=== PATIENT | female | born 1980 | race Caucasian/White ===

== ENCOUNTER 2020-10-04 07:37 | Outpatient (CLI) | payer BC, SELFPAY ==
--- NOTE | ~2020-10-04 | US_ITS ---
EXAMINATION: US abdomen limited DATE: 10/04/2020 08:09 INDICATION: Right upper quadrant abdominal pain. Nausea. TECHNIQUE: Multiple grayscale and Doppler ultrasound images of the abdomen were obtained. COMPARISON: None FINDINGS: The visualized portions of the head and body of the pancreas are normal. The liver is cliff l without focal lesion. There is normal flow in main portal vein. The gallbladder is normal in size. No gallstones or gallbladder wall thickening. There was no sonographic Selby sign. The common duct i s mildly dilated to 7 mm. IMPRESSION: 1. Mildly dilated common duct. Reviewed, dictated and finalized at location A. H OPERATOR
== END 2020-10-04 07:38 ==
PROVIDERS: PCP Family Medicine; Visit Provider Family Medicine
DX: R10.11 Right upper quadrant pain (principal)
CPT/HCPCS: 76705

== ENCOUNTER → 2021-01-17 01:37 | Outpatient (CLI) | payer BC, SELFPAY ==
[2021-01-17 19:56] LABS: SARS-CoV-2 RNA PCR Negative
== END ==
PROVIDERS: PCP Family Medicine; Visit Provider Internal Medicine Gastroenterology
DX: Z01.812 Encounter for preprocedural laboratory examination (principal); Z20.822 Contact with and (suspected) exposure to COVID-19
CPT/HCPCS: C9803; U0003; U0005

== ENCOUNTER 2021-01-20 02:25 | Day surgery (SDC) | payer BC, SELFPAY ==
[2021-01-08 13:57] VITALS: BMI 27.6
[2021-01-20 09:08] VITALS: BP 125/81; PULSE 83; RESP 18; TEMP 36.2; O2SAT 100; BMI 27.1
[2021-01-20] MEDS: LACTATED RINGERS 1,000 ML 150 ML IV CONT (09:22)
[2021-01-20 09:25] LABS: Glucose Point of Care 247 mg/dl (65-105)
--- NOTE | 2021-01-20 09:37 | WPDANESEPPF ---
Anes - Initial Pre Proc Eval Procedure: Operation Date: 01/20/21 10:00 Proposed Procedures p Esophagogastroduodenoscopy & Colonoscopy - Satnam Martinez MD Date/Time: 01/20/21 09:37 Surgeon: Satnam Martinez MD Pre Op Diagnosis: diarrhea, nausea, vomiting Patient Data Age: 40 Gender: F Height: 5 ft 7 in Weight: 78.8 kg Last Vital Signs Temp 97.1 F L 01/20/21 09:08 Pulse 83 01/20/21 09:08 Resp 18 01/20/21 09:08 BP 125/81 01/20/21 09:08 Pulse Ox 100 01/20/21 09:08 Allergies Allergy/AdvReac Type Severity Reaction Status Date / Time lactase [From Dairy Aid] Allergy Nausea and Verified 01/20/21 09:07 Vomiting Home Medications Medication Instructions Recorded Confirmed Type insulin glargine 100 unit/mL (3 40 unit SUB-Q QPM 90 Days #36 ml 05/19/20 01/08/21 Rx mL) subcutaneous pen insulin lispro 100 unit/mL 6 unit SUB-Q TID 90 Days #16.2 ml 05/19/20 01/08/21 Rx subcutaneous pen pen needle, diabetic 31 gauge x #400 ea 07/16/20 10/20/20 Rx 3/16 lisinopril 10 mg tablet 10 mg PO DAILY #90 tablet 10/31/20 01/08/21 Rx flash glucose sensor #6 ea 11/05/20 Rx famotidine [Pepcid] 20 mg PO DAILY 01/08/21 01/08/21 History Laboratory Tests 01/20/21 09:17 POC Capillary Glucose 247 mg/dl H mg/dl (65-105) Patient hx anesthesia problems: none Family hx anesthesia problems: none PMFSH Past Medical History Medical History (Updated 10/20/20 @ 11:40 by EDUIN Fajardo) Arthritis Benign essential HTN Elevated liver enzymes Obesity (BMI 30.0-34.9) Tobacco dependence Family History Family History Father Family history of elevated blood lipids Hypertension Patient's father is in good health Mother Family history of diabetes mellitus in first degree relative Patient's mother is in good health Family history of thyroid disease Family history of type 1 diabetes mellitus Sibling Patient's sister is in good health Grandparent Family history of type 2 diabetes mellitus Other Family history of allergic disorder Family history of malignant neoplasm Social History Social History Social History: Years smoked: 15 Smoking status: Current every day smoker Tobacco type: cigarettes Second hand tobacco smoke exposure: Yes Alcohol intake: current Drinks per week: 40 Substance use: current Substance use type: marijuana Other substance usage details: edibles 10mg per day Living arrangements: with family Gender identity (if verbalized by the patient): Female Spiritual care concerns: No Anes - Eval Final PreProcedure Day of Procedure 01/20/21 09:37 Patient weight: obese Heart: regular rate and rhythm Lungs: clear to auscultation Airway: Mallampati scale class II Neurological: alert and oriented Last oral intake: >/= 8 hours ASA classification: III Emergent: no Anesthetic plan: proceed Anesthesia type and monitoring: general GIVS and standard monitoring Informed Consent: The patient's anesthetic plan and its attendant risks and benefits were discussed with the patient/family/POA. Questions were solicited and answers provided to the satisfaction of the patient/family/POA.
--- NOTE | 2021-01-20 09:55 | PM.HPGS ---
History of Present Illness History of Present Illness Consent: Risks, benefits, and alternatives have been discussed and questions answered. Patient agrees to proceed with procedure. Chief complaint: diarrhea, nausea, vomiting Narrative: Neva Chandler is a 40 year old female with history of DM and etoh use, with intermittent nausea and loose stools. Review of Systems Constitutional: Constitutional: Denies headache(s) and Denies weakness Eyes: Eyes: Denies blurry vision ENT: Reports Normal hearing present, Denies headache(s) and Denies neck pain Cardiovascular: Cardiovascular: Denies chest pain and Denies dyspnea Respiratory: Respiratory: Denies dyspnea Gastrointestinal: Gastrointestinal: Reports no additional gastrointestinal complaints Genitourinary: Genitourinary: Denies dysuria Musculoskeletal: Musculoskeletal: Denies neck pain Integumentary/Breasts: Skin/Breast: Denies dry skin Neurologic: Reports Normal hearing present, Denies headache(s) and Denies weakness Psychiatric: Psychiatric: Denies anxiety Endocrine: Endocrine: Denies change in body appearance Hematologic/Lymphatic: Hematologic/Lymphatic: Denies easy bleeding Allergic/Immunologic: Allergic/Immunologic: Denies urticaria [facility] Past Medical History Medical History (Updated 10/20/20 @ 11:40 by EDUIN Fajardo) Arthritis Benign essential HTN Elevated liver enzymes Obesity (BMI 30.0-34.9) Tobacco dependence Family History Family History Father Family history of elevated blood lipids Hypertension Patient's father is in good health Mother Family history of diabetes mellitus in first degree relative Patient's mother is in good health Family history of thyroid disease Family history of type 1 diabetes mellitus Sibling Patient's sister is in good health Grandparent Family history of type 2 diabetes mellitus Other Family history of allergic disorder Family history of malignant neoplasm Social History Social History Social History: Years smoked: 15 Smoking status: Current every day smoker Tobacco type: cigarettes Second hand tobacco smoke exposure: Yes Alcohol intake: current Drinks per week: 40 Substance use: current Substance use type: marijuana Other substance usage details: edibles 10mg per day Living arrangements: with family Gender identity (if verbalized by the patient): Female Spiritual care concerns: No Meds Home Medications and Allergies Home Medications Medication Instructions Recorded Confirmed Type insulin glargine 100 unit/mL (3 40 unit SUB-Q QPM 90 Days #36 ml 05/19/20 01/08/21 Rx mL) subcutaneous pen insulin lispro 100 unit/mL 6 unit SUB-Q TID 90 Days #16.2 ml 05/19/20 01/08/21 Rx subcutaneous pen pen needle, diabetic 31 gauge x #400 ea 07/16/20 10/20/20 Rx 11/11 lisinopril 10 mg tablet 10 mg PO DAILY #90 tablet 10/31/20 01/08/21 Rx flash glucose sensor #6 ea 11/05/20 Rx famotidine [Pepcid] 20 mg PO DAILY 01/08/21 01/08/21 History Allergies Allergy/AdvReac Type Severity Reaction Status Date / Time lactase [From Dairy Aid] Allergy Nausea and Verified 01/20/21 09:07 Vomiting Vital Signs Vital Signs - 24 hr 01/20/21 09:08 Temperature 97.1 F L Pulse Rate 83 Respiratory Rate 18 Blood Pressure 125/81 Pulse Oximetry 100 Exam Const: General: comfortable and no acute distress HENMT: General nose exam: Normal nares present Eyes: General: appearance normal, both eyes and all related structures Neck: Neck: no JVD Resp: Auscultation: clear to auscultation bilaterally Cardio: Rate: regular rate Rhythm: regular rhythm GI: Inspection: non-distended GI Palp: Yes Soft to palpation Skin: General skin exam: normal color Neuro: General: gait normal Speech: normal speech Extrem: General: normal to
[2021-01-20 10:24] VITALS: BP 110/83; PULSE 82; RESP 19; O2SAT 100
[2021-01-20 10:34] VITALS: BP 117/83; PULSE 81; RESP 25; O2SAT 100
[2021-01-20 10:44] VITALS: BP 115/80; PULSE 76; RESP 17; O2SAT 100
[2021-01-20 11:00] LABS: Glucose Point of Care 214 mg/dl (65-105)
--- NOTE | 2021-01-20 11:01 | SUR.PHASEII ---
Pt had stated she took insulin this morning, blood sugar checked before her leaving, she was at 214 and stated she had her medication with her.
== END 2021-01-20 10:59 | disposition home or self-care (01) ==
PROVIDERS: PCP Family Medicine; Visit Provider Internal Medicine Gastroenterology
PROC: 0DJ08ZZ Inspection of Upper Intestinal Tract, Via Natural or Artificial Opening Endoscopic (ICD-10-PCS; CPT 43235; principal; 2021-01-20 10:00)
DX: R19.7 Diarrhea, unspecified (principal); R11.2 Nausea with vomiting, unspecified; R14.0 Abdominal distension (gaseous); K44.9 Diaphragmatic hernia without obstruction or gangrene; I10 Essential (primary) hypertension; E66.9 Obesity, unspecified; E11.9 Type 2 diabetes mellitus without complications; R74.8 Abnormal levels of other serum enzymes; F17.200 Nicotine dependence, unspecified, uncomplicated
CPT/HCPCS: 45380; 43239; 82948; 88305; J2001; J2704; J7120

== ENCOUNTER → 2021-03-06 15:07 | Outpatient (CLI) | payer BC, SELFPAY ==
--- NOTE | ~2021-03-06 | XR_ITS ---
EXAMINATION: XR abdomen obstructive series EXAM DATE: 03/06/2021 15:50 INDICATION: R14.0 - Abdominal distension (gaseous). Low abdominal pain, nausea and vomiting intermitt ently. TECHNIQUE: Frontal upright projection of the upper abdomen, frontal projection of the lower abdomen f or interpretation. There is no prior study for comparison. FINDINGS: Small amount of colonic stool and gas. No small bowel dilation, nonobstructive bowel gas pattern. Calcifications in the pelvis are believed to be phleboliths. There are no suspicious calci fications identified. There is no organomegaly suspected. The bones are unremarkable. There is no free intraperitoneal air. The lung bases are clear. IMPRESSION: Unremarkable abdomen x-ray exam. Reviewed, dictated and finalized at location B.
== END ==
PROVIDERS: PCP Family Medicine; Visit Provider Family Medicine
DX: R14.0 Abdominal distension (gaseous) (principal)
CPT/HCPCS: 74019

== ENCOUNTER 2021-06-05 10:02 | Outpatient (CLI) | payer BC, SELFPAY ==
--- NOTE | ~2021-06-05 | XR_ITS ---
XR knee RT 3V DATE: 06/05/2021 10:31 INDICATION: Right knee pain TECHNIQUE: [place], AP and lateral views COMPARISON: 11/28/2018 right knee FINDINGS: There is slight periarticular spurring of the patella. Joint spaces appear well preserved. No fracture or dislocation or joint effusion. No periosteal reaction or bone destruction. No radiopaq ue intra-articular loose body or chondrocalcinosis. IMPRESSION: Slight particular spurring of the patella consistent with minimal patellofemoral osteoart hritis Reviewed, dictated and finalized at location A. IMPRESSION: Slight particular spurring of the patella consistent with minimal p atellofemoral osteoarthritis
--- NOTE | ~2021-06-05 | XR_ITS ---
XR wrist RT min 3V DATE: 06/05/2021 10:32 INDICATION: Right wrist pain TECHNIQUE: 4 views COMPARISON: None FINDINGS: No fracture or dislocation, periosteal reaction or bone destruction, erosive change or shira drocalcinosis of the right wrist. IMPRESSION: Negative Reviewed, dictated and finalized at location A. IMPRESSION: Negative
== END 2021-06-05 10:03 ==
PROVIDERS: PCP Family Medicine; Visit Provider Family Medicine
DX: R52 Pain, unspecified (principal); M76.891 Other specified enthesopathies of right lower limb, excluding foot
CPT/HCPCS: 73110; 73562

== ENCOUNTER 2022-01-04 09:15 | Outpatient (RCR) | payer BC, SELFPAY ==
[2021-12-29 08:04] VITALS: BMI 28.1
[2021-12-29 08:10] VITALS: BMI 28.1
== END 2022-03-15 10:36 | disposition home or self-care (01) ==
LOC: ANHDMC 09:15
PROVIDERS: PCP Family Medicine; Visit Provider Nurse Practitioner Family
DX: E10.319 Type 1 diabetes mellitus with unspecified diabetic retinopathy without macular edema (principal); Z71.3 Dietary counseling and surveillance; Z71.89 Other specified counseling
CPT/HCPCS: 97802; G0108

== ENCOUNTER 2022-09-18 16:07 | Inpatient (IN) | payer BC, SELFPAY ==
--- NOTE | ~2022-09-18 | XR_ITS ---
EXAMINATION: XR chest 1V portable DATE: 09/19/2022 03:45 INDICATION: Cough. TECHNIQUE: A single frontal view of the chest was obtained. COMPARISON: Chest 2 views 03/26/2013, CT abdomen and pelvis 09/19/2022 FINDINGS: There is no pneumonia, pleural effusion, or pneumothorax. The heart size is normal. IMPRESSION: 1. No acute cardiopulmonary disease. Reviewed, dictated and finalized at location A. [employer]
--- NOTE | ~2022-09-18 | CT_ITS ---
EXAMINATION: CT abdomen pelvis w con DATE: 09/19/2022 04:10 INDICATION: Epigastric abdominal pain. Nausea and vomiting. TECHNIQUE: Computed tomography (CT) of the abdomen and pelvis was performed with 100 mL Omnipaque 350 intravenous contrast. Automated exposure control and iterative reconstruction technique were employe d. The dose-length product was 586.86 mGy-cm. COMPARISON: None. FINDINGS: The visualized portions of the lung bases demonstrate mild atelectasis in the left. No pleu ral effusion. The heart size is normal. No pericardial effusion. There is wall thickening of the dist al esophagus, likely esophagitis. There is a small sliding hiatal hernia. There is diffuse hepatic st eatosis. The gallbladder and spleen are normal. There is fat stranding around the head and body of th e pancreas, consistent with acute interstitial pancreatitis. The adrenal glands and kidneys are cliff l. There is a 7.1 cm fibroid in the uterus. There are no dilated loops of bowel. The appendix is norm al. There are no pathologically enlarged lymph nodes. There is no free intraperitoneal fluid. There i s mild thoracolumbar spondylosis. IMPRESSION: 1. Acute interstitial pancreatitis. 2. Small sliding hiatal hernia. 3. Wall thickening of the distal esophagus, likely esophagitis. Reviewed, dictated and finalized at location A. INE ATTENDANT
--- NOTE | ~2022-09-18 | US_ITS ---
EXAMINATION: US abdomen limited DATE: 09/19/2022 11:52 INDICATION: Pancreatitis. Abnormal liver function tests. TECHNIQUE: Multiple grayscale and Doppler ultrasound images of the abdomen were obtained. COMPARISON: CT abdomen and pelvis 09/19/2022 FINDINGS: The visualized portions of the head, body, and tail of the pancreas are normal. There is di ffuse hepatic steatosis. There is normal flow in main portal vein. The gallbladder is normal in size and contains sludge. No gallstones or gallbladder wall thickening. There is no sonographic Selby sig n. The common duct is normal and measures 6 mm. IMPRESSION: 1. Diffuse hepatic steatosis. Reviewed, dictated and finalized at location A. [employer]
[2022-09-18 16:31] VITALS: BP 124/89; PULSE 126; RESP 20; TEMP 36.6; O2SAT 100
[2022-09-19] VITALS (100 sets, daily range): BP systolic 104–148; BP diastolic 68–101; PULSE 73–124; RESP 11–34; TEMP 36.4–36.9; O2SAT 97–100
--- NOTE | 2022-09-19 02:00 | PC.NURSE ---
pt. to RN self administered 10 Units of insulin while in triage.
--- NOTE | 2022-09-19 02:02 | PC.NURSE ---
Patient approached intake desk concerned about her blood sugar as patient is a diabetic. Patient checked on her monitor and it read high, telegraphic typewriter operator performed POC glucose and obtained glucose result of 450. NAVEEN Carlos charge aware
[2022-09-19 02:04] LABS: Glucose Point of Care 450 mg/dl (65-105)
--- NOTE | 2022-09-19 02:27 | ED.GENADULT ---
HPI - General Adult General Chief complaint: Nausea/Vomiting/Diarrhea Stated complaint: N/V Time Seen by Provider: 09/19/22 02:11 History of Present Illness HPI narrative: Patient 42-year-old female that presents the emergency department with chief complaint of nausea vomiting abdominal pain hyperglycemia. The patient reports that she has history of diabetes and gastroparesis and reports that she also drinks a moderate amount of alcohol approximately 1/5 of alcohol per day patient reports that she started having nausea and vomiting and reports she has epigastric discomfort and feels similar to whenever she has had flareups of her gastroparesis patient states that she has taken her insulin and reports that whenever she arrived in the emergency department her blood sugar is in the 400s. Related Data Home Medications Medication Instructions Recorded Confirmed famotidine 20 mg tablet (Pepcid) 20 mg PO DAILY 01/08/21 09/08/22 Allergies Allergy/AdvReac Type Severity Reaction Status Date / Time lactase [From Dairy Aid] Allergy Nausea and Verified 09/08/22 13:43 Vomiting Review of Systems Review of Systems: A 10 system review of systems was completed on the patient and is negative except for what is stated in the HPI. Nursing and ancillary documentation was reviewed. [facility] Past Medical History Medical History Arthritis Benign essential HTN Elevated liver enzymes Obesity (BMI 30.0-34.9) Tobacco dependence Family History Family History Father Family history of elevated blood lipids Hypertension Patient's father is in good health Mother Family history of diabetes mellitus in first degree relative Patient's mother is in good health Family history of thyroid disease Family history of type 1 diabetes mellitus Sibling Patient's sister is in good health Grandparent Family history of type 2 diabetes mellitus Other Family history of allergic disorder Family history of malignant neoplasm Social History Social History Social History: Years smoked: 15 Smoking status: Current every day smoker Tobacco type: cigarettes Second hand tobacco smoke exposure: Yes Alcohol intake: current Alcohol use details: Pt drinks less than half a liter a day of alcohol. Substance use: current Substance use type: marijuana Other substance usage details: edibles 10mg, 2-3 times a week. Living arrangements: with family Occupation/Education: occupation Gender identity (if verbalized by the patient): Female Sexual Orientation (if Verbalized by the Patient): Straight or Heterosexual Spiritual care concerns: No Exam Narrative: GENERAL: Well-appearing, well-nourished, and in no acute distress. HEAD: Normocephalic, atraumatic. EYES: PERRLA and EOMI. ENT: Nares clear, no rhinorrhea or epistaxis. Mucous membranes moist. NECK: Supple. CHEST: Clear to auscultation. No respiratory distress. HEART: Regular rate and rhythm. No murmur heard. Normal peripheral pulses. ABDOMEN: Soft, tenderness to palpation of the epigastric, nondistended, normal active bowel sounds. EXTREMITIES: Normal range of motion. No edema. SKIN: Warm, dry, no rash. NEURO: No focal deficits. Alert and oriented x3. PSYCH: Normal mood and affect. Course Vital Signs Vital signs: Vital Signs Temperature 36.6 C 09/18/22 16:31 Pulse Rate 126 H 09/18/22 16:31 Respiratory Rate 20 09/18/22 16:31 Blood Pressure 124/89 09/18/22 16:31 Pulse Oximetry 100 09/18/22 16:31 Oxygen Delivery Room Air 09/18/22 16:31 Temperature 36.4 C L 09/19/22 00:35 Pulse Rate 113 H 09/19/22 02:30 Respiratory Rate 12 09/19/22 02:30 Blood Pressure 148/101 H 09/19/22 02:30 Pulse Oximetry 98 09/19/22 02:30 Oxygen Delivery Room Air 0
[2022-09-19 02:39] LABS: Fractional Inspired Oxygen 21 %; HCO3 VBG 15.6 mEq/l (24.0-30.0); PO2 VBG 47.7 mmHg (35.0-45.0); pH VBG 7.374 (7.300-7.400)
[2022-09-19 02:40] LABS: Device ROOM AIR; PCO2 VBG 27.3 mmHg (42.0-48.0)
[2022-09-19] MEDS: SODIUM CHLORIDE 0.9% IV 1,000 ML 999 ML IV CONT ×2 (02:40→02:59)
[2022-09-19] MEDS: PANTOPRAZOLE SODIUM IV 40 MG VIAL IV PUSH ×3 (02:40→20:13)
[2022-09-19 02:41] LABS: Appearance Urine Clear (Clear); Basophils Percent Auto 0.1 % (0.2-1.2); Bilirubin Urine 1+ (Negative); Blood Urine 3+ (Negative); Color Urine Yellow (Yellow); Glucose Urine UA 2+ mg/dL (Negative); Hematocrit 30.8 % (37.0-47.0); Hemoglobin 9.3 g/dL (12.0-15.0); Immature Granulocyte Absolute 0.13 K/mm3 (0.00-0.031); Ketones Urine 4+ mg/dL (Negative); Leukocyte Esterase Ur Negative LEU/UL (Negative); Lymphocytes Absolute Auto 0.65 K/mm3 (0.9-3.2); Lymphocytes Percent Auto 4.8 % (18.3-44.2); Mean Corpuscular HGB Conc 30.2 g/dl (32-36); Mean Corpuscular Volume 79.6 fl (80-100); Mean Platelet Volume 11.1 fl (7.4-10.4); Monocytes Percent Auto 7.4 % (2.6-8.5); Neutrophils Absolute Auto 11.7 K/mm3 (1.3-6.7); Neutrophils Percent Auto 86.7 % (45.5-73.1); Nitrate Urine Negative (Negative); Platelet Count Result 357 k/mm3 (150-375); Protein Urine Negative (Negative); Red Blood Count 3.87 M/mm3 (4.2-5.4); Red Cell Distribution Width 19.2 % (11.5-14.5); Specific Grav Ur 1.025 (1.001-1.035); Urobilinogen Urine 0.2 mg/dL (<2.0); White Blood Count 13.5 K/mm3 (4.5-10.0); pH Urine 5.5 (5.0-9.0)
[2022-09-19] MEDS: METOCLOPRAMIDE HCL INJ 10 MG/2 ML VIAL IV PUSH ×4 (02:41→23:58)
[2022-09-19 02:50] LABS: RBC Urine 0-2 /hpf (0-2); Squamous Epithelial Cell Urine Rare /hpf (Few); WBC Urine 0-3 /hpf
[2022-09-19 02:53] LABS: Add Urine Microscopic? YES
[2022-09-19 02:55] LABS: Alanine Aminotransferase 49 U/L (6-35); Albumin Level 4.9 g/dL (3.5-5.1); Alkaline Phosphatase 107 U/L (38-126); Anion Gap 29 mmol/L (8-16); Aspartate Amino Transferase 84 U/L (14-36); Bilirubin,Total 0.9 mg/dL (0.2-1.3); Blood Urea Nitrogen 21 mg/dL (7-17); Calcium 10.9 mg/dL (8.4-10.2); Carbon Dioxide 13 mmol/L (22-30); Chloride 83 mmol/L (98-107); Estimated Glomerular Filt Rate > 60; Glucose 453 mg/dL (65-110); Lipase 1256 U/L (23-300); Potassium 3.3 mmol/L (3.4-5.0); Sodium 125 mmol/L (137-145)
[2022-09-19 03:08] LABS: Ethanol < 10 mg/dL (<10); Phosphorus 2.2 mg/dL (2.5-4.5)
[2022-09-19 03:09] LABS: Lactic Acid Reflex 1.3 mmol/L (0.7-2.0)
[2022-09-19 03:10] LABS: Platelet Estimate Adequate (Adequate)
[2022-09-19 03:11] LABS: Poikilocytosis 1+ (NORMAL)
[2022-09-19 03:19] LABS: Amphetamine Screen Urine Negative (Negative); Barbiturate Screen Urine Negative (Negative); Benzodiazepines Screen Urine Negative (Negative); Cannabinoid Screen Urine Negative (Negative); Cocaine Screen Urine Negative (Negative); Methadone Screen Urine Negative (Negative); Opiate Screen Urine Negative (Negative); Phencyclidine Screen Urine Negative (Negative)
[2022-09-19 03:20] LABS: Troponin I < 0.012 ng/mL (0.000-0.034)
[2022-09-19 03:40] LABS: Influenza A QL RT-PCR Negative (Negative); Influenza B QL RT-PCR Negative (Negative); RSV RNA, RT-PCR Negative (Negative); SARS-CoV-2 RNA PCR Negative
[2022-09-19 03:50] LABS: Glucose Point of Care 364 mg/dl (65-105)
[2022-09-19 04:12] LABS: Procalcitonin 0.6 ng/mL
[2022-09-19] MEDS: SODIUM CHLORIDE 0.9% IV 1,000 ML 250 ML IV CONT (05:24)
[2022-09-19] MEDS: INSULIN HUMAN REGULAR (*BKC) 100 UNITS in SODIUM CHLORIDE 0.9% IV 99 ML 7.9 UNITS IV CONT (05:25)
[2022-09-19 05:31] LABS: Glucose Point of Care 273 mg/dl (65-105)
--- NOTE | 2022-09-19 05:53 | ECG_ITS ---
Measurements Intervals [place] Rate: 112 P: 62 NE: 125 QRS: 5 QRSD: 98 T: 45 QT: 329 QTc: 449 Interpretive Statements SINUS TACHYCARDIA DELAYED PRECORDIAL R/S TRANSITION BASELINE ARTIFACT- V3, V5 ABNORMAL ECG NO PREVIOUS ECG AVAILABLE FOR COMPARISON Electronically Signed On 09-19-2022 7:27:31 [employer] by Nirmal Pierce D.O.
[2022-09-19] MEDS: THIAMINE 500 MG/NS 100 ML 500 MG/100 ML BAG 200 MG IVPB (06:19)
[2022-09-19] MEDS: KCL 20 MEQ/SW 100 ML 100 ML 50 MEQ IVPB (06:20)
--- NOTE | 2022-09-19 06:39 | PM.IMHP ---
H&P: HPI History of Present Illness Date/Time: 09/19/22 06:39 Chief Complaint: Vomiting, upper abdominal pain Narrative: 42-year-old female with a past medical history of gastroparesis, type 1 diabetes mellitus, and alcoholism who presented to the ER with nausea vomiting and epigastric abdominal pain since Tuesday. The patient has historically well-controlled diabetes with A1c of 5.3 a has outpatient on the of this month. The patient reports that she drinks a half of a 5th of alcohol per day. She has been drinking daily and heavily for 5 years. She has never tried to stop drinking. She has no desire to stop drinking. Six days ago she started having nausea, vomiting and abdominal pain similar to when she has issues with her gastroparesis. Vomiting is consistent mostly clear liquid. On Tuesday she did have a few specks of dark material. She reports that she has not had any food since Tuesday. In the last 5 days she has only been able to eat a couple of a eggs and a smoothie. She has been able to continue drinking her alcohol. She did manage to keep 1 shot of alcohol down on the afternoon of the . She is also managed to take small sips of water, Pedialyte and Gatorade. Her symptoms have not improved despite Pepcid. She did have 1 episode syncope on the night of the when she stood up to try to fold some laundry. She noted that her hands were shaking just prior to passing out. She felt weak. She did bite the side of her tongue when she fell to the floor. She states that she has been compliant with her insulin. However the patient's blood sugars were still elevated to 400s when she arrived to the ER. She denies having any hematochezia or melena. She has not had a bowel movement in a few days because she has not eaten. She denies problems with chronic constipation or diarrhea. She occasionally chews marijuana gummies but has not done so recently. She denies any dysuria. She reports that she has been urinating more frequently over the last couple of days. She denies any hematuria. She has noticed some variations in her menstrual cycles over recent months. She thinks that she may be perimenopausal. She reports increased number of heavy menses. Scattered with some more normal cycles in between. She was diagnosed with diabetes at the age of 20. She reports that for she was not treated with insulin. She reports that she has never been in DKA previously. Review of Systems Review of Systems: 12 systems were reviewed with pertinent positives and negatives per HPI. Except as documented in the HPI, all other systems were reviewed and are negative. [facility] Past Medical History Medical History (Updated 09/19/22 @ 06:45 by Mary Garcia DO) Arthritis Benign essential HTN Diabetic gastroparesis associated with type 1 diabetes mellitus Diabetic neuropathy Elevated liver enzymes Obesity (BMI 30.0-34.9) Tobacco dependence Type 1 diabetes mellitus Type 1 diabetes mellitus with retinopathy Surgical History Surgical History (Updated 09/19/22 @ 08:00 by Mary Garcia DO) No history of previous surgery Family History Family History (Updated 09/19/22 @ 08:02 by Mary Garcia DO) Father Hypertension Patient's father is in good health Hyperlipidemia Mother Patient's mother is in good health Pacemaker Type 1 diabetes mellitus Sibling Patient's sister is in good health Grandparent Family history of type 2 diabetes mellitus Other Family history of allergic disorder Family history of malignant neoplasm Social History Social History (Updated 09/19/22 @ 08:08 by Mary Garcia DO) Social History: She has been since 2012. She has smoked since she was in her early 20s. She has smoked as much as 1 pack of cigarettes per day. He is currently cut down to about 5 cigarettes a day. Approximately 2 to 3 times a month she will consume marijuana edibles. She has drank heavily every day since appr
--- NOTE | 2022-09-19 06:45 | ADMGEN ---
This patient, Neva Chandler, was admitted to Intensive Care Unit-6. Patient/family oriented to hospital policies and general routines including ID bracelet, bed and alarms, visiting hours, pain management, procedures, bathroom and other care routines, personal items, smoking policy, room service/diet, and visiting hours. Information on how to activate the Rapid Response Team has been discussed. Patient/Family are encouraged to report perceived risks to care and to ask questions if they do not understand what they are told or what they should do.
[2022-09-19 06:51] LABS: Troponin I < 0.012 ng/mL (0.000-0.034)
[2022-09-19 06:54] LABS: Anion Gap 15 mmol/L (8-16); Blood Urea Nitrogen 16 mg/dL (7-17); Calcium 9.5 mg/dL (8.4-10.2); Carbon Dioxide 19 mmol/L (22-30); Chloride 97 mmol/L (98-107); Estimated Glomerular Filt Rate > 60; Glucose 216 mg/dL (65-110); Magnesium 1.8 mg/dL (1.6-2.3); Phosphorus 1.1 mg/dL (2.5-4.5); Potassium 2.9 mmol/L (3.4-5.0); Sodium 131 mmol/L (137-145)
[2022-09-19 07:10] LABS: Iron 51 ug/dL (37-170)
[2022-09-19 07:19] LABS: Percent Iron Saturation 11 % (20-50)
--- NOTE | 2022-09-19 07:51 | ADMGEN ---
This patient, Neva Chandler, was admitted to Intensive Care Unit-6 on Sep 19 at 0700. Patient/family oriented to hospital policies and general routines including ID bracelet, bed and alarms, visiting hours, pain management, procedures, bathroom and other care routines, personal items, smoking policy, room service/diet, and visiting hours. Information on how to activate the Rapid Response Team has been discussed. Patient/Family are encouraged to report perceived risks to care and to ask questions if they do not understand what they are told or what they should do.
[2022-09-19 08:06] LABS: Glucose Point of Care 187 mg/dl (65-105)
[2022-09-19 08:06] LABS: Glucose Point of Care 128 mg/dl (65-105)
[2022-09-19 08:21] LABS: Folic Acid 6.3 ng/mL (2.76->20)
--- NOTE | 2022-09-19 08:32 | WPDCNINT ---
Assessment and Plan Assessment and plan (1) Diabetic ketoacidosis: Code(s): E11.10 - Type 2 diabetes mellitus with ketoacidosis without coma Status: Acute Assessment and Plan: Patient presented with ketoacidosis which was likely combination of diabetes and alcoholic ketosis Patient was given IVF bolus and started on infusion Patient was started on Insulin infusion and Q1H glucose monitoring Serial labs were performed Her anion gap has now closed and patient also has significantly low potassium level I will discontinue insulin drip and replace her potassium aggressively Start Lantus and subcutaneous insulin Clear liquid diet (2) Alcoholic ketosis: Code(s): E88.89 - Other specified metabolic disorders Status: Acute Assessment and Plan: See above (3) Transaminitis: Code(s): R74.01 - Elevation of levels of liver transaminase levels Status: Acute Assessment and Plan: Elevated liver enzymes likely secondary to alcoholic hepatitis Check right upper quadrant ultrasound Check PT INR Check while hepatitis panel to rule out concurrent traction (4) Acute on chronic anemia: Code(s): D64.9 - Anemia, unspecified Status: Acute Assessment and Plan: Multifactorial Patient has history of heavy menstrual cycle, has alcohol abuse and also reports some GI loss Monitor hemoglobin (5) Tobacco dependence: Code(s): F17.200 - Nicotine dependence, unspecified, uncomplicated Status: Acute Assessment and Plan: Patient was counseled and encouraged to quit smoking (6) Pancreatitis: Code(s): K85.90 - Acute pancreatitis without necrosis or infection, unspecified Status: Acute Assessment and Plan: Acute pancreatitis secondary to alcohol abuse. She had CT scan done in the ED which was negative as per ER physician sign-out although report is pending Check right upper quadrant ultrasound to rule out any gallstones Patient is clinically better and states that her pain is significantly improved Will try clear liquid diet Pain control IV fluids (7) Alcoholism: Code(s): F10.20 - Alcohol dependence, uncomplicated Status: Acute Assessment and Plan: Patient works as a strategic sourcing specialist and drinks half a pt of alcohol every day Thiamine and folic acid Monitor for withdrawal Patient was counseled and encouraged to quit or at least cut down alcohol intake IV fluids (8) Upper GI bleeding: Code(s): K92.2 - Gastrointestinal hemorrhage, unspecified Status: Acute Assessment and Plan: Patient noticed specks of blood in her vomitus from Tuesday onwards followed by dark vomitus Could be secondary to gastritis , peptic ulcer disease or Florecita-Nguyen tear Monitor hemoglobin IV PPI q.12 hours Consult GI (9) Electrolyte abnormality: Code(s): E87.8 - Other disorders of electrolyte and fluid balance, not elsewhere classified Status: Acute Assessment and Plan: Replace low potassium phosphate and magnesium levels Plan DVT prophylaxis -SCDs Stress ulcer prophylaxis -IV PPI .Nutrition -clear liquid diet. advance as tolerated Code Status - Full Code Total Critical Care Time - 40 minutes Due to a high probability of clinically significant, life threatening deterioration, the patient required my highest level of preparedness to intervene emergently and I personally spent this critical care time directly and personally managing the patient. This critical care time included obtaining a history; examining the patient; pulse oximetry; ordering and review of studies; arranging urgent treatment with development of a management plan; evaluation of patient's response to treatment; frequent reassessment; and discussions with other providers. It was exclusive of separately billable procedures and treating other patients and teaching time. Please see Assessment and Plan section and the rest of the note for further information on
[2022-09-19] MEDS: MAGNESIUM OXIDE 400 MG TABLET PO (08:42)
[2022-09-19] MEDS: INSULIN GLARGINE (*BKC) 100 UNITS/ML 20 UNITS SUB-Q (08:43)
[2022-09-19] MEDS: POTASSIUM PHOS,M-BASIC-D-BASIC 40 MMOL in SODIUM CHLORIDE 0.9% IV 250 ML 43.89 MMOL IVPB (09:00)
[2022-09-19 09:04] LABS: Anion Gap 11 mmol/L (8-16); Blood Urea Nitrogen 15 mg/dL (7-17); Calcium 9.4 mg/dL (8.4-10.2); Carbon Dioxide 22 mmol/L (22-30); Chloride 100 mmol/L (98-107); Estimated CRCL calculation 89 ml/min; Estimated Glomerular Filt Rate > 60; Glucose 92 mg/dL (65-110); Sodium 133 mmol/L (137-145)
[2022-09-19 09:07] LABS: INR 1.1; Prothrombin Time 13.5 Seconds (11.1-14.7)
[2022-09-19] MEDS: FOLIC ACID 1 MG/0.2 ML INJ IV PUSH (09:07)
[2022-09-19 09:35] LABS: Hepatitis B Surface Antigen Negative (Negative)
[2022-09-19 09:41] LABS: HAV RESULT Negative (Negative); Hepatitis B Core IgM Result Negative (Negative)
[2022-09-19 09:52] LABS: Hepatitis C Virus Antibody Negative (Negative)
[2022-09-19 10:31] LABS: Glucose Point of Care 112 mg/dl (65-105)
[2022-09-19 10:31] LABS: Glucose Point of Care 122 mg/dl (65-105)
--- NOTE | 2022-09-19 10:42 | WPDGICN ---
Assessment and Plan Assessment and plan (1) History of hematemesis: Code(s): Z87.19 - Personal history of other diseases of the digestive system Status: Acute Assessment and Plan: Patient noted to vomit on Tuesday she states she had a few specks of dark blood at that time. Ultimately found to have ketoacidosis which is known to be associated with gastritis potentially contributes to this. It is possible with her ongoing heartburn that she has acid reflux disease. In fact CT scan suggested esophagitis per Florecita-Nguyen tear cannot be excluded but typically would be associated with more vigorous bleeding. Given that she is somewhat anemic in EGD would be prudent when she is stabilized. Perhaps Tuesday or Tuesday of this week prior to discharge. (2) Acute on chronic anemia: Code(s): D64.9 - Anemia, unspecified Status: Acute Assessment and Plan: Patient with mild anemia. May be related to chronic disease. Cannot exclude some component of bleeding but hemoglobin appears stable at present. Current hemoglobin 9.3 with microcytic indices. (3) Pancreatitis: Code(s): K85.90 - Acute pancreatitis without necrosis or infection, unspecified Status: Acute Assessment and Plan: Patient presented with epigastric pain. CT scan suggest possible mild pancreatitis. Lipase is noted to be elevated 1256. Plan to start with NPO status and slowly reintroduce diet as pain subsides. Likely this is related to alcohol use. (4) Alcoholic ketosis: Code(s): E88.89 - Other specified metabolic disorders Status: Acute Assessment and Plan: Patient ketotic on presentation. Likely secondary to alcoholism. Cannot exclude some component of diabetes. Plan to advance diet as tolerated. monitor level of ketones. (5) Alcoholism: Code(s): F10.20 - Alcohol dependence, uncomplicated Status: Acute Assessment and Plan: Alcohol avoidance is strongly encouraged. GI Consult Note Consult date/time: 09/19/22 10:42 Reason for consult: Hematemesis HPI: Neva Chandler is a 42 year old female [facility] because of hematemesis. Patient has a history of heavy ongoing alcohol intake. 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 She states on Tuesday and Tuesday began to have nausea vomiting and epigastric pain. This persisted and the pain became somewhat severe, for this reason she presented to the hospital and was admitted to the hospital. Pain located in the mid epigastric area. It has subsided at present. When she vomited she did have a few specks of dark blood noted. Patient is no prior history of ulcer disease. She does complain of occasional heartburn. His past medical history of diabetes. Family history noncontributory. At the time admission found to have elevated lipase felt to be a pancreatitis. She was ketotic suggesting she had alcoholic possible diabetic ketoacidosis. She had a mild anemia on presentation. Review of Systems Review of Systems: Review of systems noncontributory. [facility] Past Medical History Medical History (Updated 09/19/22 @ 10:47 by Michael Bhatti MD) Arthritis Benign essential HTN Diabetic gastroparesis associated with type 1 diabetes mellitus Diabetic neuropathy Elevated liver enzymes Obesity (BMI 30.0-34.9) Tobacco dependence Type 1 diabetes mellitus Type 1 diabetes mellitus with retinopathy Surgical History Surgical History No history of previous surgery Family History Family History Father Hypertension Patient's father is in good health Hyperlipidemia Mother Patient's mother is in good health Pacemaker Type 1 diabetes mellitus Sibling Patient's sister is in good health Grandparent Family history of type 2 diabetes mellitus Other Famil
[2022-09-19 11:34] LABS: Glucose Point of Care 116 mg/dl (65-105)
--- NOTE | 2022-09-19 12:23 | PM.IMPN ---
Progress Note: A&P Assessment and Plan (1) Diabetic ketoacidosis: Code(s): E11.10 - Type 2 diabetes mellitus with ketoacidosis without coma Status: Acute (2) Alcoholic ketosis: Code(s): E88.89 - Other specified metabolic disorders Status: Acute (3) Transaminitis: Code(s): R74.01 - Elevation of levels of liver transaminase levels Status: Acute (4) Elevated lipase: Code(s): R74.8 - Abnormal levels of other serum enzymes Status: Acute (5) Acute on chronic anemia: Code(s): D64.9 - Anemia, unspecified Status: Acute (6) Tobacco dependence: Code(s): F17.200 - Nicotine dependence, unspecified, uncomplicated Status: Acute Plan The patient presents with an anion gap metabolic acidosis that is multifactorial. The patient's acidosis is due to a combination of alcoholic and diabetic ketosis with a definite component of starvation ketosis as well. The patient has received a total of 3 L of fluid bolus in the ER. The patient will be placed on fluids per DKA protocol with initiation of dextrose once glucose is less than 250. Will continue to monitor serial BMPs q.4 hours. Continue Accu-Cheks hourly. Patient will remain NPO. Will provide nausea medications with Zofran and Reglan. The patient does have a mildly elevated lipase but this is likely due to her recurrent emesis and pancreatitis is less likely. However treatment is the same regardless of if his pancreatitis or not the patient is NPO and on IV fluids. The patient has chronic alcoholism. The importance of alcohol cessation was discussed with patient. CIWA protocol has been ordered with CIWA scores Q 4 hours and Ativan as needed for symptoms of withdrawal. The patient received 1 time dose of high-dose IM in the ER [address] patient on thiamin 100 mg daily as well as folic acid. These will be provided IV formulation given the patient's nausea and vomiting. The patient has acute on chronic anemia on labs that her anemia is now microcytic. Anemia could be due to decreased oral intake iron, blood loss verses from GI tract verses heavy menses or chronic disease. Will obtain iron studies and check stool for occult blood. Patient has chronic tobacco dependence. Nicotine supplements will be offered. Cessation information has been provided. 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 Subjective Date/time seen: 09/19/22 12:23 Vomiting, upper abdominal pain HPI-Narrative: 42-year-old female with a past medical history of gastroparesis, type 1 diabetes mellitus, and alcoholism who presented to the ER with nausea vomiting and epigastric abdominal pain since Tuesday.? The patient has historically well-controlled diabetes with A1c of 5.3 a has outpatient on the of this month.? The patient reports that she drinks a half of a 5th of alcohol per day.? She has been drinking daily and heavily for 5 years.? She has never tried to stop drinking.? She has no desire to stop drinking.? Six days ago she started having nausea, vomiting and abdominal pain similar to when she
[2022-09-19 12:45] LABS: Glucose Point of Care 233 mg/dl (65-105)
[2022-09-19] MEDS: INSULIN ASPART (*BKC) 100 UNITS/ML SUB-Q (13:14)
[2022-09-19 14:57] LABS: Anion Gap 13 mmol/L (8-16); Blood Urea Nitrogen 12 mg/dL (7-17); Carbon Dioxide 21 mmol/L (22-30); Chloride 98 mmol/L (98-107); Estimated CRCL calculation 102 ml/min; Estimated Glomerular Filt Rate > 60; Glucose 159 mg/dL (65-110); Potassium 3.5 mmol/L (3.4-5.0); Sodium 132 mmol/L (137-145)
[2022-09-19] MEDS: SODIUM CHLORIDE 0.9% IV 1,000 ML 150 ML IV CONT (15:52)
[2022-09-19 16:50] LABS: Glucose Point of Care 160 mg/dl (65-105)
[2022-09-19] MEDS: POTASSIUM CHLORIDE 20 MEQ PACKET (FOR LIQUID) 40 MEQ PO (16:59)
[2022-09-19 20:29] LABS: Glucose Point of Care 194 mg/dl (65-105)
[2022-09-19] MEDS: SODIUM CHLORIDE 0.9% IV 1,000 ML 100 ML IV CONT (21:58)
[2022-09-19] MEDS: POTASSIUM CHLORIDE 20 MEQ TABLET 40 MEQ PO (21:58)
[2022-09-20] VITALS (13 sets, daily range): BP systolic 110–140; BP diastolic 81–88; PULSE 74–92; RESP 16–25; TEMP 36.2–36.9; O2SAT 98–100; BMI 26.9
[2022-09-20] MEDS: INSULIN ASPART (*BKC) 100 UNITS/ML SUB-Q ×3 (00:01→17:48)
[2022-09-20 00:59] LABS: Glucose Point of Care 212 mg/dl (65-105)
[2022-09-20 03:32] LABS: Basophils Percent Auto 0.1 % (0.2-1.2); Eosinophils Percent Auto 0.4 % (0-4.4); Hematocrit 25.4 % (37.0-47.0); Hemoglobin 7.6 g/dL (12.0-15.0); Immature Granulocyte Absolute 0.06 K/mm3 (0.00-0.031); Immature Granulocyte Percent A 0.7 % (0-0.5); Lymphocytes Percent Auto 13.5 % (18.3-44.2); Mean Corpuscular HGB Conc 29.9 g/dl (32-36); Mean Corpuscular Volume 80.1 fl (80-100); Mean Platelet Volume 10.4 fl (7.4-10.4); Monocytes Absolute Auto 0.8 K/mm3 (0.1-0.6); Monocytes Percent Auto 9.8 % (2.6-8.5); Neutrophils Absolute Auto 6.1 K/mm3 (1.3-6.7); Neutrophils Percent Auto 75.5 % (45.5-73.1); Platelet Count Result 265 k/mm3 (150-375); Red Blood Count 3.17 M/mm3 (4.2-5.4); Red Cell Distribution Width 19.1 % (11.5-14.5); White Blood Count 8.1 K/mm3 (4.5-10.0)
[2022-09-20 03:45] LABS: Chloride 98 mmol/L (98-107)
[2022-09-20 03:47] LABS: Alanine Aminotransferase 54 U/L (6-35); Albumin Level 3.4 g/dL (3.5-5.1); Alkaline Phosphatase 84 U/L (38-126); Anion Gap 13 mmol/L (8-16); Aspartate Amino Transferase 122 U/L (14-36); Bilirubin,Total 0.7 mg/dL (0.2-1.3); Blood Urea Nitrogen 6 mg/dL (7-17); Calcium 8.8 mg/dL (8.4-10.2); Carbon Dioxide 20 mmol/L (22-30); Estimated CRCL calculation 120 ml/min; Estimated Glomerular Filt Rate > 60; Glucose 203 mg/dL (65-110); Lipase 1904 U/L (23-300); Magnesium 1.5 mg/dL (1.6-2.3); Phosphorus 1.8 mg/dL (2.5-4.5); Potassium 3.2 mmol/L (3.4-5.0); Sodium 131 mmol/L (137-145)
[2022-09-20 03:56] LABS: Hypochromasia 1+ (NORMAL); Platelet Estimate Adequate (Adequate); Poikilocytosis 1+ (NORMAL)
[2022-09-20] MEDS: METOCLOPRAMIDE HCL INJ 10 MG/2 ML VIAL IV PUSH ×2 (05:21→15:05)
[2022-09-20 05:35] LABS: Glucose Point of Care 207 mg/dl (65-105)
[2022-09-20 08:08] LABS: Glucose Point of Care 195 mg/dl (65-105)
[2022-09-20] MEDS: SODIUM CHLORIDE 0.9% IV 1,000 ML 100 ML IV CONT (08:12)
[2022-09-20] MEDS: THIAMINE HCL 200 MG/2 ML VIAL 100 MG IV PUSH (08:14)
[2022-09-20] MEDS: FOLIC ACID 1 MG/0.2 ML INJ IV PUSH (08:14)
[2022-09-20] MEDS: PANTOPRAZOLE SODIUM IV 40 MG VIAL IV PUSH ×2 (08:14→20:44)
[2022-09-20] MEDS: POTASSIUM CHLORIDE 20 MEQ TABLET 40 MEQ PO (09:46)
[2022-09-20] MEDS: MAGNESIUM SULF 2 GM/WATER 50ML 2 GM/50 ML BAG IVPB (09:47)
[2022-09-20] MEDS: MAGNESIUM OXIDE 400 MG TABLET PO (09:47)
[2022-09-20 11:50] LABS: Glucose Point of Care 199 mg/dl (65-105)
[2022-09-20] MEDS: LACTATED RINGERS 1,000 ML 150 ML IV CONT (11:54)
--- NOTE | 2022-09-20 13:03 | WPDANESEPPF ---
Anes - Initial Pre Proc Eval Procedure: Operation Date: 09/20/22 13:15 Proposed Procedures p Esophagogastroduodenoscopy - Michael Bhatti MD Date/Time: 09/20/22 13:03 Surgeon: Mary Garcia DO Pre Op Diagnosis: Diabetic Ketoacidosis,Elevated Lipase,History of A Patient Data Age: 42 Gender: F Height: 1.7 m Weight: 77.8 kg Last Vital Signs Temp 97.2 F L 09/20/22 11:51 Pulse 76 09/20/22 11:51 Resp 16 09/20/22 11:51 BP 136/81 09/20/22 11:51 Pulse Ox 99 09/20/22 11:51 O2 Del Method Room Air 09/20/22 11:51 Allergies Allergy/AdvReac Type Severity Reaction Status Date / Time lactase [From Dairy Aid] Allergy Nausea and Verified 09/20/22 11:50 Vomiting Home Medications Medication Instructions Recorded Confirmed Type pen needle, diabetic 31 gauge x #400 ea 07/16/20 09/20/22 Rx 3/16 (BD Ultra-Fine Mini Pen Needle) insulin glargine U-300 conc 300 16 unit (0.0533 mL) subcut DAILY 03/08/22 09/20/22 Rx unit/mL (1.5 mL) subcutaneous pen 90 days #6 mL (Toujeo SoloStar U-300 Insulin) blood-glucose sensor (FreeStyle #6 ea 09/08/22 09/20/22 Rx Lazaro 3 Sensor device) cholecalciferol (vitamin D3) 1,250 50,000 unit PO MONTHLY 09/20/22 09/20/22 History mcg (50,000 unit) capsule insulin lispro 100 unit/mL 5 unit subcut TID 09/20/22 09/20/22 History subcutaneous pen (Humalog KwikPen (U-100) Insulin) Laboratory Tests 09/19/22 09/19/22 09/19/22 14:40 16:47 20:11 WBC RBC Hgb Hct MCV MCH MCHC RDW Plt Count MPV Immature Gran % (Auto) Neut % (Auto) Lymph % (Auto) [place]verse % (Auto) Eos % (Auto) Baso % (Auto) Lymph # (Auto) [place] # (Auto) Eos # (Auto) Baso # (Auto) Abs Immat Gran (auto) Absolute Neuts (auto) Absolute Nucleated RBC Nucleated RBC % Platelet Estimate Hypochromasia Poikilocytosis Schistocytes Sodium 132 mmol/L L mmol/L (137-145) Potassium 3.5 mmol/L mmol/L (3.4-5.0) Chloride 98 mmol/L mmol/L (98-107) Carbon Dioxide 21 mmol/L L mmol/L (22-30) Anion Gap 13 mmol/L mmol/L (8-16) BUN 12 mg/dL mg/dL (7-17) Creatinine 0.60 mg/dL L mg/dL (0.7-1.0) Estim Creat Clear Calc 102 ml/min ml/min Estimated GFR > 60 (59 - ) Glucose 159 mg/dL H mg/dL (65-110) POC Capillary Glucose 160 mg/dl H mg/dl 194 mg/dl H mg/dl (65-105) (65-105) Calcium 9.0 mg/dL mg/dL (8.4-10.2) Phosphorus Magnesium Total Bilirubin AST ALT Alkaline Phosphatase Total Protein Albumin Lipase 09/19/22 09/20/22 09/20/22 23:56 03:22 03:22 WBC 8.1 K/mm3 K/mm3 (4.5-10.0) RBC 3.17 M/mm3 L M/mm3 (4.2-5.4) Hgb 7.6 g/dL L g/dL (12.0-15.0) Hct 25.4 % L % (37.0-47.0) MCV 80.1 fl fl (80-100) MCH 24.0 pg L pg (26-34) MCHC 29.9 g/dl L g/dl (32-36) RDW 19.1 % H % (11.5-14.5) Plt Count 265 k/mm3 k/mm3 (150-375) MPV 10.4 fl fl (7.4-10.4) Immature Gran % (Auto) 0.7 % H % (0-0.5) Neut % (Auto) 75.5 % H % (45.5-73.1) Lymph % (Auto) 13.5 % L % (18.3-44.2) Converse % (Auto) 9.8 % H % (2.6-8.5) Eos % (Auto) 0.4 % % (0-4.4) Baso % (Auto) 0.1 % L % (0.2-1.2) Lymph # (Auto) 1.10 K/mm3 K/mm3 (0.9-3.2) Converse # (Auto) 0.8 K/mm3 H K/mm3 (0.1-0.6) Eos # (Auto) 0.0 K/mm3 K/mm3 (0-0.3) Baso # (Auto) 0.0 K/mm3 K/mm3
[2022-09-20 14:40] LABS: Glucose Point of Care 225 mg/dl (65-105)
[2022-09-20] MEDS: INSULIN GLARGINE (*BKC) 100 UNITS/ML 10 UNITS SUB-Q (15:05)
--- NOTE | 2022-09-20 15:18 | PM.IMPN ---
Progress Note: A&P Assessment and Plan (1) Diabetic ketoacidosis: Code(s): E11.10 - Type 2 diabetes mellitus with ketoacidosis without coma Status: Acute (2) Alcoholic ketosis: Code(s): E88.89 - Other specified metabolic disorders Status: Acute (3) Transaminitis: Code(s): R74.01 - Elevation of levels of liver transaminase levels Status: Acute (4) Elevated lipase: Code(s): R74.8 - Abnormal levels of other serum enzymes Status: Acute (5) Acute on chronic anemia: Code(s): D64.9 - Anemia, unspecified Status: Acute (6) Tobacco dependence: Code(s): F17.200 - Nicotine dependence, unspecified, uncomplicated Status: Acute Plan The patient presents with an anion gap metabolic acidosis that is multifactorial. The patient's acidosis is due to a combination of alcoholic and diabetic ketosis with a definite component of starvation ketosis as well. The patient has received a total of 3 L of fluid bolus in the ER. The patient will be placed on fluids per DKA protocol with initiation of dextrose once glucose is less than 250. Will continue to monitor serial BMPs q.4 hours. Continue Accu-Cheks hourly. Patient will remain NPO. Will provide nausea medications with Zofran and Reglan. The patient does have a mildly elevated lipase but this is likely due to her recurrent emesis and pancreatitis is less likely. However treatment is the same regardless of if his pancreatitis or not the patient is NPO and on IV fluids. The patient has chronic alcoholism. The importance of alcohol cessation was discussed with patient. CIWA protocol has been ordered with CIWA scores Q 4 hours and Ativan as needed for symptoms of withdrawal. The patient received 1 time dose of high-dose IM in the ER [address] patient on thiamin 100 mg daily as well as folic acid. These will be provided IV formulation given the patient's nausea and vomiting. The patient has acute on chronic anemia on labs that her anemia is now microcytic. Anemia could be due to decreased oral intake iron, blood loss verses from GI tract verses heavy menses or chronic disease. Will obtain iron studies and check stool for occult blood. Patient has chronic tobacco dependence. Nicotine supplements will be offered. Cessation information has been provided. 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 Subjective Date/time seen: 09/20/22 15:18 09/20/2022 interval history: 42-year-old female with history of type 1 diabetes and alcohol abuse, presented emergency department with complaint vomiting and upper abdominal upon arrival patient was found to have blood sugar of 450 and patient was in DKA also concerning for alcoholic ketoacidosis as patient also drinks 375ml of hard liquor every day, patient was transferred to ICU and vigorously hydrated started the patient on insulin infusion, now patient anion gap is closed and michelle
[2022-09-20 17:23] LABS: Glucose Point of Care 251 mg/dl (65-105)
[2022-09-20 20:40] LABS: Glucose Point of Care 223 mg/dl (65-105)
[2022-09-21] VITALS (13 sets, daily range): BP systolic 120–145; BP diastolic 75–91; PULSE 77–92; RESP 12–24; TEMP 36.5–36.8; O2SAT 99
[2022-09-21] MEDS: METOCLOPRAMIDE HCL INJ 10 MG/2 ML VIAL IV PUSH ×4 (00:01→16:54)
[2022-09-21 04:52] LABS: Hemoglobin 7.7 g/dL (12.0-15.0); Mean Corpuscular HGB Conc 29.6 g/dl (32-36); Mean Platelet Volume 10.6 fl (7.4-10.4); Platelet Count Result 249 k/mm3 (150-375); Red Blood Count 3.21 M/mm3 (4.2-5.4)
[2022-09-21 05:07] LABS: Alanine Aminotransferase 58 U/L (6-35); Albumin Level 3.6 g/dL (3.5-5.1); Alkaline Phosphatase 80 U/L (38-126); Anion Gap 12 mmol/L (8-16); Aspartate Amino Transferase 128 U/L (14-36); Bilirubin,Total 0.7 mg/dL (0.2-1.3); Blood Urea Nitrogen 3 mg/dL (7-17); Carbon Dioxide 24 mmol/L (22-30); Chloride 91 mmol/L (98-107); Estimated CRCL calculation 120 ml/min; Estimated Glomerular Filt Rate > 60; Glucose 246 mg/dL (65-110); Magnesium 1.8 mg/dL (1.6-2.3); Phosphorus 3.1 mg/dL (2.5-4.5); Potassium 3.6 mmol/L (3.4-5.0); Sodium 127 mmol/L (137-145)
[2022-09-21 05:23] LABS: Lipase 2812 U/L (23-300)
[2022-09-21] MEDS: PANTOPRAZOLE SODIUM IV 40 MG VIAL IV PUSH ×2 (09:02→21:30)
[2022-09-21] MEDS: THIAMINE HCL 200 MG/2 ML VIAL 100 MG IV PUSH (09:02)
[2022-09-21] MEDS: FOLIC ACID 1 MG/0.2 ML INJ IV PUSH (09:02)
[2022-09-21] MEDS: MAGNESIUM OXIDE 400 MG TABLET PO (09:07)
[2022-09-21] MEDS: INSULIN ASPART (*BKC) 100 UNITS/ML SUB-Q ×3 (09:07→16:50)
[2022-09-21] MEDS: INSULIN GLARGINE (*BKC) 100 UNITS/ML 20 UNITS SUB-Q (09:08)
[2022-09-21] MEDS: POTASSIUM CHLORIDE 20 MEQ TABLET 40 MEQ PO (09:18)
--- NOTE | 2022-09-21 10:24 | WPDGIPROGNO ---
Progress Note: A&P Assessment and Plan (1) Ulcerative esophagitis: Code(s): K22.10 - Ulcer of esophagus without bleeding Status: Acute Assessment and Plan: Patient complains of painful swallowing consistent with 0dynophagia. EGD revealed significant ulcerative esophagitis. Most likely this is on the basis of GE reflux. Cannot exclude infectious etiology. Histology pending to further evaluate at this time. Will start viscous lidocaine prior to meals as she has difficulty with intake because of pain. (2) Type 1 diabetes mellitus: Code(s): E10.9 - Type 1 diabetes mellitus without complications Status: Acute (3) Pancreatitis: Code(s): K85.90 - Acute pancreatitis without necrosis or infection, unspecified Status: Acute Assessment and Plan: Mild pancreatitis on presentation. Patient's lipase remains elevated. We will limit oral intake to liquids because of this. (4) Alcoholic ketosis: Code(s): E88.89 - Other specified metabolic disorders Status: Acute (5) Diabetic ketoacidosis: Code(s): E11.10 - Type 2 diabetes mellitus with ketoacidosis without coma Status: Acute Subjective Date/time seen: 09/21/22 10:24 Interval history: patient reports pain with swallowing that persists. This occurs even with eating baby food. Now on PPI blockers. Review of Systems Review of Systems: Review of systems noncontributory. Exam Narrative: Physical exam reveals Vital Signs be stable. HEENT exam is unremarkable. Patient is anicteric. Lungs are clear. Heart without murmur. Abdomen with mild epigastric discomfort. Objective Data Vital Signs Vital Signs: Vital Signs - 24 hr 09/20/22 11:51 09/20/22 11:34 09/20/22 13:50 Temperature 97.2 F L Pulse Rate 76 85 Respiratory Rate 16 22 H Blood Pressure 136/81 136/81 123/83 Pulse Oximetry 99 98 Oxygen Delivery Room Air Room Air 09/20/22 14:00 09/20/22 14:10 09/20/22 15:20 Temperature Pulse Rate 77 75 75 Respiratory Rate 25 H 25 H Blood Pressure 124/82 128/84 Pulse Oximetry 100 100 Oxygen Delivery Room Air Room Air 09/20/22 16:00 09/20/22 16:00 09/20/22 19:58 Temperature 98.5 F Pulse Rate 89 74 78 Respiratory Rate 22 H Blood Pressure 110/86 Pulse Oximetry 99 Oxygen Delivery 09/20/22 20:00 09/20/22 23:59 09/21/22 00:00 Temperature 98.4 F Pulse Rate 85 82 Respiratory Rate 20 Blood Pressure 140/83 Pulse Oximetry 100 99 Oxygen Delivery Room Air 09/21/22 04:00 Temperature Pulse Rate 80 Respiratory Rate Blood Pressure Pulse Oximetry Oxygen Delivery Intake/Output Intake/Output: Intake & Output 09/18/22 09/19/22 09/20/22 09/21/22 23:59 23:59 23:59 23:59 Intake Total 4200 2709 600 Output Total 2502 852 Balance 1698 1857 600 Meds/Results Medications: Active Medications Generic Name Dose Route Start Last Admin Trade Name Freq PRN Reason Stop Dose Admin Chlordiazepoxide HCl 25 mg 09/19/22 14:49 Chlordiazepoxide (*Crx) 25 Mg Capsule PO Q6H PRN Withdrawal Dextrose 12.5 gm 09/19/22 05:33 Dextrose 50% 25 Gm/50 Ml Syringe IV PUSH PRN PRN Hypoglycemia Protocol Folic Acid 1 mg 09/19/22 09:00 09/21/22 09:02 Folic Acid 1 Mg/0.2 Ml Inj IV PUSH 1 mg QAM HOSEA Administration Glucagon 1 mg 09/19/22 05:33 Glucagon For Inj 1 Mg Vial IM PRN PRN Hypoglycemia Protocol Glucose 15 gm 09/19/22 05:33 Glucose Oral Gel 15 Gm Of Glucse In 37.5 Gm Tube PO PRN PRN Hypoglycemia Protocol Dextrose 1,000 mls @ 100 mls/hr 09/19/22 05:33 Dextrose 5% 1,000 Ml IVPB PRN PRN Hypoglycemia Protocol Insulin Aspart 3 - 6 units 09/20/22 17:00 09/21/22 09:07 Insulin Aspart (*Bkc) 100 Units/Ml SUB-Q 5 units TIDWM HOSEA Administration Protocol Insulin Glargine 20 units 09/19/22 08:25 09/21/22 09:08 Insulin Glargine (*Bkc)
[2022-09-21] MEDS: LIDOCAINE HCL 2% VISC SOLN 15 ML UDC PO ×2 (12:29→16:28)
[2022-09-21 12:43] LABS: Glucose Point of Care 242 mg/dl (65-105)
[2022-09-21 12:48] LABS: Glucose Point of Care 307 mg/dl (65-105)
--- NOTE | 2022-09-21 14:41 | PM.IMPN ---
Progress Note: A&P Assessment and Plan (1) Diabetic ketoacidosis: Code(s): E11.10 - Type 2 diabetes mellitus with ketoacidosis without coma Status: Acute (2) Alcoholic ketosis: Code(s): E88.89 - Other specified metabolic disorders Status: Acute (3) Transaminitis: Code(s): R74.01 - Elevation of levels of liver transaminase levels Status: Acute (4) Elevated lipase: Code(s): R74.8 - Abnormal levels of other serum enzymes Status: Acute (5) Acute on chronic anemia: Code(s): D64.9 - Anemia, unspecified Status: Acute (6) Tobacco dependence: Code(s): F17.200 - Nicotine dependence, unspecified, uncomplicated Status: Acute Plan The patient presents with an anion gap metabolic acidosis that is multifactorial. The patient's acidosis is due to a combination of alcoholic and diabetic ketosis with a definite component of starvation ketosis as well. The patient has received a total of 3 L of fluid bolus in the ER. The patient will be placed on fluids per DKA protocol with initiation of dextrose once glucose is less than 250. Will continue to monitor serial BMPs q.4 hours. Continue Accu-Cheks hourly. Patient will remain NPO. Will provide nausea medications with Zofran and Reglan. The patient does have a mildly elevated lipase but this is likely due to her recurrent emesis and pancreatitis is less likely. However treatment is the same regardless of if his pancreatitis or not the patient is NPO and on IV fluids. The patient has chronic alcoholism. The importance of alcohol cessation was discussed with patient. CIWA protocol has been ordered with CIWA scores Q 4 hours and Ativan as needed for symptoms of withdrawal. The patient received 1 time dose of high-dose IM in the ER [address] patient on thiamin 100 mg daily as well as folic acid. These will be provided IV formulation given the patient's nausea and vomiting. The patient has acute on chronic anemia on labs that her anemia is now microcytic. Anemia could be due to decreased oral intake iron, blood loss verses from GI tract verses heavy menses or chronic disease. Will obtain iron studies and check stool for occult blood. Patient has chronic tobacco dependence. Nicotine supplements will be offered. Cessation information has been provided. 09/21/2022 interval history: 42-year-old female with history of type 1 diabetes and alcohol abuse, presented emergency department with complaint vomiting and upper abdominal upon arrival patient was found to have blood sugar of 450 and patient was in DKA also concerning for alcoholic ketoacidosis as patient also drinks 375ml of hard liquor every day, patient was transferred to ICU and vigorously hydrated started the patient on insulin infusion, now patient anion gap is closed and patient is off the insulin drip counter person has started the patient long-acting insulin with sliding scale, her blood sugar close to target, patient states feeling much better compared to when she arrived, was also concern for hematemesis patient seen by GI and suspect patient may have esophagitis and Florecita-Nguyen tear may benefit from EGD evaluation when clinically stable, on 09/20 patient was seen by GI and had EGD which showed ulcerative esophagitis, no acute bleeding, patient has risk DT, will monitor and place the patient CIWA protocol, patient's CIWA protocol score a very low and patient last drink was 72 hours ago now patient with low risk of DT, will transfer patient to [facility] floor, upon arrival patient found to have a acute pancreatitis most likely alcohol related, lipase were 1256 now trending up 2812, on 09/20 GI advanced patient diet to diabetic diet, today will continue to monitor if remains clinically stable discharge the patient home tomorrow. Subjective Date/time seen: 09/21/22 14:41 09/21/2022 interval history: 42-year-old female with history of type 1 diabetes and alcohol abuse,
[2022-09-21 16:41] LABS: Glucose Point of Care 204 mg/dl (65-105)
[2022-09-22 00:17] LABS: Glucose Point of Care 141 mg/dl (65-105)
[2022-09-22] MEDS: METOCLOPRAMIDE HCL INJ 10 MG/2 ML VIAL IV PUSH ×2 (00:33→06:02)
[2022-09-22 04:32] LABS: Hematocrit 28.3 % (37.0-47.0); Hemoglobin 8.4 g/dL (12.0-15.0); Mean Corpuscular HGB Conc 29.7 g/dl (32-36); Mean Corpuscular Hemoglobin 24.5 pg (26-34); Mean Corpuscular Volume 82.5 fl (80-100); Mean Platelet Volume 10.4 fl (7.4-10.4); Platelet Count Result 309 k/mm3 (150-375); Red Blood Count 3.43 M/mm3 (4.2-5.4); Red Cell Distribution Width 20.4 % (11.5-14.5); White Blood Count 8.8 K/mm3 (4.5-10.0)
[2022-09-22 04:47] LABS: Alanine Aminotransferase 60 U/L (6-35); Albumin Level 3.9 g/dL (3.5-5.1); Alkaline Phosphatase 92 U/L (38-126); Anion Gap 16 mmol/L (8-16); Aspartate Amino Transferase 107 U/L (14-36); Bilirubin,Total 0.8 mg/dL (0.2-1.3); Blood Urea Nitrogen 5 mg/dL (7-17); Calcium 9.1 mg/dL (8.4-10.2); Carbon Dioxide 20 mmol/L (22-30); Chloride 93 mmol/L (98-107); Estimated CRCL calculation 120 ml/min; Estimated Glomerular Filt Rate > 60; Glucose 276 mg/dL (65-110); Magnesium 1.7 mg/dL (1.6-2.3); Phosphorus 3.6 mg/dL (2.5-4.5); Potassium 3.5 mmol/L (3.4-5.0); Sodium 129 mmol/L (137-145)
[2022-09-22 05:18] LABS: Lipase 2953 U/L (23-300)
[2022-09-22] MEDS: LIDOCAINE HCL 2% VISC SOLN 15 ML UDC PO ×2 (06:04→11:43)
[2022-09-22 07:36] LABS: Glucose Point of Care 356 mg/dl (65-105)
[2022-09-22 07:41] VITALS: BP 134/83; PULSE 96; RESP 18; TEMP 37; O2SAT 100
--- NOTE | 2022-09-22 07:48 | WPDGIPROGNO ---
Progress Note: A&P Assessment and Plan (1) Ulcerative esophagitis: Code(s): K22.10 - Ulcer of esophagus without bleeding Status: Acute Assessment and Plan: Ulcerative esophagitis noted at endoscopy. This appears to account for odynophagia. Trial of viscous lidocaine prior to meals is in progress. This only helps briefly. Plan to continue acid suppression for presumed acid reflux disease. Biopsies from the esophagus pending to exclude infection. Long-term anti-reflux measures and Protonix use is encouraged. (2) Pancreatitis: Code(s): K85.90 - Acute pancreatitis without necrosis or infection, unspecified Status: Acute Assessment and Plan: Mild pancreatitis seen on imaging. Lipase 2953 today. This may be chronically elevated. Has patient has no significant epigastric pain. Plan to allow low-fat diet as tolerated. Continue to monitor lipase, even after discharge. (3) Alcoholism: Code(s): F10.20 - Alcohol dependence, uncomplicated Status: Acute Assessment and Plan: Alcohol avoidance strongly encouraged. Consider rehab or support group. (4) Transaminitis: Code(s): R74.01 - Elevation of levels of liver transaminase levels Status: Acute Assessment and Plan: Elevated serum transaminases appear to be related to alcohol use. Patient probably has some component of alcoholic hepatitis. (5) Type 1 diabetes mellitus: Code(s): E10.9 - Type 1 diabetes mellitus without complications Status: Acute Assessment and Plan: Patient admitted with acidosis and ketosis likely related to alcohol use. Potentially related to diabetes. Diabetic therapy per currently being managed by primary care service. Subjective Date/time seen: 09/22/22 07:48 Interval history: Patient continues to notice heartburn. Somewhat painful on swallowing. viscous lidocaine helps only briefly. Denies abdominal pain. Comfortable sitting in bed. Review of Systems Review of Systems: Review of systems noncontributory. Exam Narrative: Physical exam reveals patient be alert. Comfortable at rest. HEENT exam reveals no icterus. Lungs are clear to auscultation and percussion. Heart is without murmur or extra sounds. Abdomen bowel sounds present soft nontender with no organomegaly. Objective Data Vital Signs Vital Signs: Vital Signs - 24 hr 09/21/22 08:00 09/21/22 08:00 09/21/22 09:00 Temperature 97.7 F Pulse Rate 91 80 84 Respiratory Rate 21 H 12 Blood Pressure Pulse Oximetry Oxygen Delivery 09/21/22 10:00 09/21/22 11:00 09/21/22 12:39 Temperature 97.8 F Pulse Rate 77 87 81 Respiratory Rate 18 19 20 Blood Pressure 120/75 138/86 Pulse Oximetry Oxygen Delivery 09/21/22 12:00 09/21/22 12:40 09/21/22 16:00 Temperature 97.8 F 98 F Pulse Rate 83 84 78 Respiratory Rate 21 H 19 Blood Pressure 138/86 141/91 H Pulse Oximetry Oxygen Delivery 09/21/22 20:00 09/21/22 21:30 09/22/22 07:41 Temperature 98.2 F 98.6 F Pulse Rate 81 96 Respiratory Rate 16 18 Blood Pressure 145/90 H 134/83 Pulse Oximetry 99 99 100 Oxygen Delivery Room Air Intake/Output Intake/Output: Intake & Output 09/19/22 09/20/22 09/21/22 09/22/22 23:59 23:59 23:59 23:59 Intake Total 4200 2709 1200 600 Output Total 2502 852 900 800 Balance 1698 1857 300 -200 Meds/Results Medications: Active Medications Generic Name Dose Route Start Last Admin Trade Name Freq PRN Reason Stop Dose Admin Chlordiazepoxide HCl 25 mg 09/19/22 14:49 Chlordiazepoxide (*Crx) 25 Mg Capsule PO Q6H PRN Withdrawal Dextrose 12.5 gm 09/19/22 05:33 Dextrose 50% 25 Gm/50 Ml Syringe IV PUSH PRN PRN Hypoglycemia Protocol Folic Acid 1 mg 09/19/22 09:00 09/21/22 09:02 Folic Acid 1 Mg/0.2 Ml Inj IV PUSH 1 mg QAM HOSEA Administration Glucagon 1 mg 09/19/22 05:33 Glucagon For Inj 1 Mg Vial IM
[2022-09-22] MEDS: INSULIN ASPART (*BKC) 100 UNITS/ML SUB-Q ×2 (08:37→11:46)
[2022-09-22] MEDS: INSULIN GLARGINE (*BKC) 100 UNITS/ML 20 UNITS SUB-Q (08:38)
[2022-09-22] MEDS: FOLIC ACID 1 MG/0.2 ML INJ IV PUSH (08:49)
[2022-09-22] MEDS: PANTOPRAZOLE SODIUM IV 40 MG VIAL IV PUSH (08:50)
[2022-09-22] MEDS: THIAMINE HCL 200 MG/2 ML VIAL 100 MG IV PUSH (08:50)
[2022-09-22] MEDS: MAGNESIUM OXIDE 400 MG TABLET PO (08:54)
[2022-09-22 11:50] LABS: Glucose Point of Care 247 mg/dl (65-105)
--- NOTE | 2022-09-22 13:42 | PM.DS ---
DS: Admitting Diagnosis Discharge Date 09/22/2022 Admitting Diagnosis Vomiting, upper abdominal pain DS: Discharge Diagnosis Discharge Diagnosis (1) Diabetic ketoacidosis: Code(s): E11.10 - Type 2 diabetes mellitus with ketoacidosis without coma Status: Acute (2) Alcoholic ketosis: Code(s): E88.89 - Other specified metabolic disorders Status: Acute (3) Transaminitis: Code(s): R74.01 - Elevation of levels of liver transaminase levels Status: Acute (4) Elevated lipase: Code(s): R74.8 - Abnormal levels of other serum enzymes Status: Acute (5) Acute on chronic anemia: Code(s): D64.9 - Anemia, unspecified Status: Acute (6) Tobacco dependence: Code(s): F17.200 - Nicotine dependence, unspecified, uncomplicated Status: Acute Plan The patient presents with an anion gap metabolic acidosis that is multifactorial. The patient's acidosis is due to a combination of alcoholic and diabetic ketosis with a definite component of starvation ketosis as well. The patient has received a total of 3 L of fluid bolus in the ER. The patient will be placed on fluids per DKA protocol with initiation of dextrose once glucose is less than 250. Will continue to monitor serial BMPs q.4 hours. Continue Accu-Cheks hourly. Patient will remain NPO. Will provide nausea medications with Zofran and Reglan. The patient does have a mildly elevated lipase but this is likely due to her recurrent emesis and pancreatitis is less likely. However treatment is the same regardless of if his pancreatitis or not the patient is NPO and on IV fluids. The patient has chronic alcoholism. The importance of alcohol cessation was discussed with patient. CIWA protocol has been ordered with CIWA scores Q 4 hours and Ativan as needed for symptoms of withdrawal. The patient received 1 time dose of high-dose IM in the ER [address] patient on thiamin 100 mg daily as well as folic acid. These will be provided IV formulation given the patient's nausea and vomiting. The patient has acute on chronic anemia on labs that her anemia is now microcytic. Anemia could be due to decreased oral intake iron, blood loss verses from GI tract verses heavy menses or chronic disease. Will obtain iron studies and check stool for occult blood. Patient has chronic tobacco dependence. Nicotine supplements will be offered. Cessation information has been provided. 09/21/2022 interval history: 42-year-old female with history of type 1 diabetes and alcohol abuse, presented emergency department with complaint vomiting and upper abdominal upon arrival patient was found to have blood sugar of 450 and patient was in DKA also concerning for alcoholic ketoacidosis as patient also drinks 375ml of hard liquor every day, patient was transferred to ICU and vigorously hydrated started the patient on insulin infusion, now patient anion gap is closed and patient is off the insulin drip per diem registered nurse has started the patient long-acting insulin with sliding scale, her blood sugar close to target, patient states feeling much better compared to when she arrived, was also concern for hematemesis patient seen by GI and suspect patient may have esophagitis and Florecita-Nguyen tear may benefit from EGD evaluation when clinically stable, on 09/20 patient was seen by GI and had EGD which showed ulcerative esophagitis, no acute bleeding, patient has risk DT, will monitor and place the patient CIWA protocol, patient's CIWA protocol score a very low and patient last drink was 72 hours ago now patient with low risk of DT, will transfer patient to [facility] floor, upon arrival patient found to have a acute pancreatitis most likely alcohol related, lipase were 1256 now trending up 2812, on 09/20 GI advanced patient diet to diabetic diet, today will continue to monitor if remains clinically stable discharge the patient home tomorrow. DS: Summary Hospital Course Reas
== END 2022-09-22 15:00 | disposition home or self-care (01) | DRG 637 ==
LOC: ANHED 09-19 05:33 → ANHICU 09-19 06:21
PROVIDERS: Internal Medicine; Internal Medicine Gastroenterology; Physician Assistant; Admitting Provider Internal Medicine; Emergency Provider Emergency Medicine; PCP Family Medicine; Visit Provider Family Medicine
PROC: 0DJ08ZZ Inspection of Upper Intestinal Tract, Via Natural or Artificial Opening Endoscopic (ICD-10-PCS; CPT 43235; principal; 2022-09-20 13:15)
DX: E10.10 Type 1 diabetes mellitus with ketoacidosis without coma (principal); K85.20 Alcohol induced acute pancreatitis without necrosis or infection; K22.10 Ulcer of esophagus without bleeding; E88.89 Other specified metabolic disorders; F10.229 Alcohol dependence with intoxication, unspecified; T73.0XXA Starvation, initial encounter; K70.10 Alcoholic hepatitis without ascites; Z20.822 Contact with and (suspected) exposure to COVID-19; E10.42 Type 1 diabetes mellitus with diabetic polyneuropathy; E10.319 Type 1 diabetes mellitus with unspecified diabetic retinopathy without macular edema; E86.0 Dehydration; D50.9 Iron deficiency anemia, unspecified; E87.8 Other disorders of electrolyte and fluid balance, not elsewhere classified; M19.90 Unspecified osteoarthritis, unspecified site; D63.8 Anemia in other chronic diseases classified elsewhere; K21.9 Gastro-esophageal reflux disease without esophagitis; F17.210 Nicotine dependence, cigarettes, uncomplicated; Z79.4 Long term (current) use of insulin; Z87.19 Personal history of other diseases of the digestive system
CPT/HCPCS: 36415; 71045; 74177; 76705; 80048; 80053; 80074; 80307; 81001; 81025; 82010; 82607; 82728; 82746; 82803; 82948; 83540; 83550; 83605; 83690; 83735; 84100; 84145; 84484; 85025; 85027; 85610; 87637; 88305; 88312; 93005; 96361; 96374; 96375; 99285; A9270; C9113; J1815; J2704; J2765; J3411; J3475; J3480; J7030; J7050; J7120; Q9967

== ENCOUNTER 2023-01-27 16:01 | Outpatient (CLI) | payer BC, SELFPAY ==
--- NOTE | ~2023-01-27 | XR_ITS ---
EXAMINATION: XR ankle LT min 3V DATE: 01/27/2023 16:26 INDICATION: Left ankle injury. Fall. TECHNIQUE: 3 views of left ankle were obtained. COMPARISON: None. FINDINGS: Bone alignment is normal. There are fractures of the second-fourth metatarsals. Joint space s are normal. IMPRESSION: 1. Fractures of the second-fourth metatarsals. Reviewed, dictated and finalized at location A.
--- NOTE | ~2023-01-27 | XR_ITS ---
EXAMINATION: XR foot LT min 3V DATE: 01/27/2023 16:26 INDICATION: Left foot injury. Fall. TECHNIQUE: 3 views of left foot were obtained. COMPARISON: None. FINDINGS: Bone alignment is normal. There is a nondisplaced extra articular transverse fracture of ba se of second metatarsal. There is a nondisplaced extra-articular transverse fracture of base of third metatarsal. There is an extra-articular transverse fracture of base of fourth metatarsal. The distal fracture fragment demonstrates 3 mm lateral displacement and 1 mm plantar displacement. Joint spaces are normal. IMPRESSION: 1. Fractures of the second-fourth metatarsals. Reviewed, dictated and finalized at location A.
== END 2023-01-27 16:02 | disposition home or self-care (01) ==
LOC: ANHIMG 16:07
PROVIDERS: PCP Family Medicine; Visit Provider Physician Assistant
DX: S92.325A Nondisplaced fracture of second metatarsal bone, left foot, initial encounter for closed fracture (principal); S92.335A Nondisplaced fracture of third metatarsal bone, left foot, initial encounter for closed fracture; S92.345A Nondisplaced fracture of fourth metatarsal bone, left foot, initial encounter for closed fracture; W19.XXXA Unspecified fall, initial encounter
CPT/HCPCS: 73610; 73630

== ENCOUNTER 2023-11-02 19:01 | Inpatient (IN) | payer BC, SELFPAY ==
--- NOTE | ~2023-11-02 | XR_ITS ---
Portable chest x-ray Comparison: 09/19/2022 Clinical History: Chest pain Findings: Lungs are clear, without focal consolidation or pleural effusion. Cardiomediastinal silho uette is stable. Bones and soft tissues are unremarkable. Impression: Normal chest. Reviewed, dictated and finalized at [facility]. SHOVELER Impression: Normal chest.
--- NOTE | ~2023-11-02 | CT_ITS ---
CT of the Abdomen and Pelvis: Indication: Abdominal pain Technique: 2.5 mm axial scans were obtained through the abdomen and pelvis following intravenous adm inistration of 100 cc of Omnipaque 350. Dose reduction technique was used on this scan by utilizing a utomated exposure control and iterative reconstruction technique. The dose-length product (DLP) was 5 25.69 mGy-cm. COMPARISON: 09/19/2022 Findings: Scans through the lung bases are unremarkable. Diffuse fatty infiltration of liver is present. The spleen, gallbladder, adrenals and kidneys are wit hin normal limits. There is extensive peripancreatic inflammatory change with fluid extending into th e retroperitoneum. No definite pancreatic necrosis or pseudocyst. No evidence of aortic aneurysm. No lymphadenopathy. No bowel obstruction or bowel wall thickening. There is no evidence to suggest acute appendicitis. Images through the pelvis were performed. Urinary bladder unremarkable. Peripheral calcified uterine fibroid measures 6 cm in diameter. Trace pelvic ascites. Impression: Acute pancreatitis, as detailed above. Diffuse fatty infiltration of liver. Uterine fibroid. Reviewed, dictated and finalized at location . EQUIPMENT OPERATOR Impression: Acute pancreatitis, as detailed above. Diffuse fatty infiltration of liver. Uterine fibroid.
--- NOTE | ~2023-11-02 | CT_ITS ---
Non-contrast Head CT History: Head injury Technique: Axial non-contrast imaging of the brain was performed. Dose reduction technique was used on this scan by utilizing automated exposure control and iterative reconstruction technique. The dose -length product (DLP) was 605.33 mGy-cm. Findings: There is no evidence of intracranial hemorrhage, mass lesion, or acute infarct. Brain par enchyma appears normal. The ventricles and subarachnoid spaces are normal in size. The calvarium ap pears normal. The visualized paranasal sinuses and mastoid air cells are clear. Impression: No significant abnormality seen. Reviewed, dictated and finalized at [facility]. UTER APPLICATIONS DEVELOPER Impression: No significant abnormality seen.
[2023-11-02 19:11] VITALS: BP 132/91; PULSE 107; RESP 16; TEMP 36.4; O2SAT 100
--- NOTE | 2023-11-03 00:18 | ECG_ITS ---
Measurements Intervals [place] Rate: 80 P: 35 MT: 123 QRS: 19 QRSD: 93 T: 48 QT: 392 QTc: 454 Interpretive Statements SINUS RHYTHM NORMAL ECG COMPARED TO ECG 09/19/2022 06:27:31 SINUS RHYTHM NOW PRESENT Electronically Signed On 11-03-2023 6:30:53 PROPERTY ANALYST by Nirmal Pierce D.O.
[2023-11-03 01:45] VITALS: BP 138/91; PULSE 88; RESP 15; O2SAT 100
--- NOTE | 2023-11-03 01:48 | ED.ABDPAIN ---
HPI - Abdominal Pain General Chief Complaint: Abdominal Pain <Jyoti Vega PA-C - Last Filed: 11/03/23 03:27> Stated Complaint: wrappping around abd pain <Jyoti Vega PA-C - Last Filed: 11/03/23 03:27> Time Seen by Provider: 11/03/23 01:33 <Jyoti Vega PA-C - Last Filed: 11/03/23 03:27> History of Present Illness HPI narrative: 43-year-old female with a history of alcoholism, type 1 diabetes and pancreatitis presents to the emergency department for nausea, vomiting and epigastric and left upper quadrant abdominal pain x2 days. Patient states 2 nights ago she was got up to go to the bathroom in the middle night. States she urinated on the toilet and when she sat up felt weak and fell to the ground. States her head grazed against the toilet but she did not lose consciousness. Denies vision changes or focal numbness or weakness. Since then, she has been having nausea, vomiting and epigastric and left upper quadrant abdominal pain. States this feels similar to when she had pancreatitis in August of 2022. Patient denies diarrhea, hematemesis, melena or hematochezia, diarrhea, fever. She reports left-sided chest pain beneath her breast which is nonradiating, no aggravating or alleviating factors. She reports cough which she is attributing to her smoker's cough and is unchanged from her baseline. States her glucose at home has been under control but does feel like it has been debating lower at night recently. Patient does admit to drinking 1/2 to 3/4 of a 750 mL bottle of Tequila daily since December. <Jyoti Vega PA-C - Last Filed: 11/03/23 03:27> Related Data Home Medications: Home Medications Medication Instructions Recorded Confirmed cholecalciferol (vitamin D3) 1,250 50,000 unit PO MONTHLY 09/20/22 01/27/23 mcg (50,000 unit) capsule biotin 10,000 mcg chewable tablet mcg PO 01/10/23 01/27/23 (Hair, Skin and Nails (biotin)) calcium 167 mg-vitamin D3 1.67 cap PO 01/10/23 01/27/23 mcg-magnesium 83 mg capsule milk thistle 150 mg capsule 150 mg PO BID 01/10/23 01/27/23 womans multiple vitamin BYMOUTH 01/10/23 01/27/23 <Jyoti Vega PA-C - Last Filed: 11/03/23 03:27> Allergies/Adverse Reactions: Allergies Allergy/AdvReac Type Severity Reaction Status Date / Time lactase [From Dairy Aid] Allergy Nausea and Verified 11/03/23 01:50 Vomiting <Jyoti Vega PA-C - Last Filed: 11/03/23 03:27> Review of Systems Review of Systems: CONSTITUTIONAL: Denies fever, chills, or sweats. EYES: Denies visual changes, redness, or discharge. ENT: Denies rhinorrhea, congestion, sore throat, or otalgia. CARDIOVASCULAR: See HPI RESPIRATORY: See HPI GASTROINTESTINAL: See HPI GENITOURINARY: Denies dysuria or hematuria. SKIN: Denies rash or itching. MUSCULOSKELETAL: Denies back pain, joint pain, or myalgia. NEUROLOGIC: Denies headache, numbness, or weakness. PSYCHIATRIC: Denies anxiety or depression. <Jyoti Vega PA-C - Last Filed: 11/03/23 03:27> [facility] Past Medical History Medical History: Medical History Arthritis Benign essential HTN Diabetic gastroparesis associated with type 1 diabetes mellitus Diabetic neuropathy Elevated liver enzymes Obesity (BMI 30.0-34.9) Tobacco dependence Type 1 diabetes mellitus Type 1 diabetes mellitus with retinopathy <Jyoti Vega PA-C - Last Filed: 11/03/23 03:27> Surgical History Surgical History: Surgical History No history of previous surgery <Jyoti Vega PA-C - Last Filed: 11/03/23 03:27> Family History Family History: Family History Father Hypertension Patient's father is in good health Hyperlipidemia Mother Patient's mother is in good health Pacemaker Type 1 diabetes mellitus Sibling Pat
[2023-11-03] MEDS: SODIUM CHLORIDE 0.9% IV 1,000 ML 999 ML IV CONT ×2 (01:58→03:31)
[2023-11-03] MEDS: ONDANSETRON INJ 4 MG/2 ML VIAL IV PUSH (01:59)
[2023-11-03 02:12] VITALS: BP 130/85; PULSE 86; RESP 18; O2SAT 100
[2023-11-03 02:15] LABS: Basophils Absolute Auto 0.1 K/mm3 (0.0-0.1); Basophils Percent Auto 0.6 % (0.2-1.2); Eosinophils Percent Auto 0.2 % (0-4.4); Hemoglobin 10.5 g/dL (12.0-15.0); Immature Granulocyte Absolute 0.05 K/mm3 (0.00-0.031); Immature Granulocyte Percent A 0.5 % (0-0.5); Lymphocytes Absolute Auto 1.45 K/mm3 (0.9-3.2); Lymphocytes Percent Auto 14.7 % (18.3-44.2); Mean Corpuscular HGB Conc 31.8 g/dl (32-36); Mean Corpuscular Hemoglobin 27.2 pg (26-34); Mean Corpuscular Volume 85.5 fl (80-100); Mean Platelet Volume 12.2 fl (7.4-10.4); Monocytes Percent Auto 9.8 % (2.6-8.5); Neutrophils Absolute Auto 7.3 K/mm3 (1.3-6.7); Neutrophils Percent Auto 74.2 % (45.5-73.1); Platelet Count Result 227 k/mm3 (150-375); Red Blood Count 3.86 M/mm3 (4.2-5.4); Red Cell Distribution Width 21.4 % (11.5-14.5); White Blood Count 9.9 K/mm3 (4.5-10.0)
[2023-11-03 02:29] LABS: Lactic Acid Reflex 2.9 mmol/L (0.7-2.0)
[2023-11-03 02:33] LABS: Alanine Aminotransferase 66 U/L (6-35); Alkaline Phosphatase 185 U/L (38-126); Anion Gap 17 mmol/L (8-16); Aspartate Amino Transferase 157 U/L (14-36); Bilirubin,Total 2.3 mg/dL (0.2-1.3); Blood Urea Nitrogen 10 mg/dL (7-17); Carbon Dioxide 20 mmol/L (22-30); Chloride 95 mmol/L (98-107); Estimated Glomerular Filt Rate > 60; Glucose 127 mg/dL (65-110); Potassium 3.7 mmol/L (3.4-5.0); Sodium 132 mmol/L (137-145)
[2023-11-03 02:41] LABS: Troponin I < 0.012 ng/mL (0.000-0.034)
[2023-11-03 02:46] LABS: Lipase 2641 U/L (23-300)
[2023-11-03 02:57] LABS: Magnesium 1.2 mg/dL (1.6-2.3)
[2023-11-03 03:12] LABS: Bacteria Urine 4+ /hpf; Need Manual Microscopic Reviewed; Non Pathogenic Casts 0-2; RBC Urine 21-50 /hpf (0-2); Squamous Epithelial Cell Urine Many /hpf (Few); WBC Urine 0-5 /hpf
[2023-11-03 03:12] LABS: Beta-Hydroxybutyrate/Acetoacetate 2.92 mmol/L (0.02-0.27)
[2023-11-03 03:13] LABS: Appearance Urine Turbid (Clear); Bilirubin Urine 1+ (Negative); Glucose Urine UA Negative (Negative); Ketones Urine 3+ mg/dL (Negative); Leukocyte Esterase Ur Trace LEU/UL (Negative); Nitrate Urine Positive (Negative); Protein Urine 1+ mg/dL (Negative); Specific Grav Ur 1.034 (1.001-1.035); pH Urine 5.5 (5.0-9.0)
[2023-11-03 03:14] LABS: Color Urine Dark Yellow (Yellow)
[2023-11-03 03:16] LABS: Add Urine Microscopic? YES
[2023-11-03] MEDS: THIAMINE HCL 200 MG/2 ML VIAL 100 MG IV PUSH (03:30)
[2023-11-03] MEDS: MAGNESIUM SULF 1 GM/D5W 100 ML 1 GM/100 ML BAG IVPB (03:31)
[2023-11-03] MEDS: MORPHINE SULFATE (*CRX) 4 MG/ML INJ IV PUSH (03:31)
[2023-11-03] MEDS: SODIUM CHLORIDE 0.9% IV 1,000 ML 150 ML IV CONT (04:49)
[2023-11-03 05:13] LABS: Reflex Lactic Acid Yes or No Add Lactic
[2023-11-03 05:41] VITALS: BP 136/91; PULSE 88; RESP 19; O2SAT 100
[2023-11-03 05:54] VITALS: BMI 26.9
--- NOTE | 2023-11-03 05:54 | ADMGEN ---
This patient, Neva Chandler, was admitted to [facility] Surg Room 329-01. Patient/family oriented to hospital policies and general routines including ID bracelet, bed and alarms, visiting hours, pain management, procedures, bathroom and other care routines, personal items, smoking policy, room service/diet, and visiting hours. Information on how to activate the Rapid Response Team has been discussed. Patient/Family are encouraged to report perceived risks to care and to ask questions if they do not understand what they are told or what they should do.
[2023-11-03 06:00] VITALS: BP 141/89; PULSE 86; RESP 20; TEMP 36.7; O2SAT 100
[2023-11-03] MEDS: SODIUM CHLORIDE 0.9% IV 1,000 ML 150 ML (06:31)
[2023-11-03 06:46] LABS: Lactic Acid 1.5 mmol/L (0.7-2.0)
--- NOTE | 2023-11-03 07:08 | PM.IMHP ---
H&P: HPI History of Present Illness Date/Time: 11/03/23 07:08 Chief Complaint: pancreatitis Narrative: 43 year old female with significant past medical history of alcoholism, pancreatitis, type 1 diabetes, and tobacco dependence (6 pack year). Patient presented to hospital from home for nausea, vomiting, and pain in the epigastric and LUQ regions for the past 2 days. She previously had pancreatitis in August 2022 and states this pain feels similar. She rates her pain a 4 with radiation to the back. She denies fever, diarrhea, hematemesis, and hematochezia. She drinks 1/2-3/4 of 750 ml of Tequila per day since December 2022. She notes that prior to December 2022 she still drank heavily, but not to this current extent. 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 Due to her previous pancreatitis in 2022 she stopped drinking completely for 5 months and denies withdrawal symptoms at that time. She notes that her urine has been dark, but denies changes in urinary frequency/urgency, burning and pain with urination. She notes that in the ED she had left sided chest pain under her breast which has since subsided. VS upon arrival: AF, HR 107, RR 16, SpO2 100% RA, BP 132/91 ED workup included a CBC without leukocytosis and mild anemia with H/H 10.5/33.0. Chemistry significant for Sodium 132, Chloride 95, Bicarb 20 with anion gap of 17. She has an elevated lactic acid of 2.9. Lipase is concerning at 2641. Her glucose is 127. Beta hydroxybutyrate is 2.92. Bilirubin is 2.3 and LFTs are elevated with AST 157, ALT 66, and Alk phos 185. Mg was 1.2. Troponin was negative and EKG showed sinus rhythm without ischemic changes. Urinalysis had a turbid appearance, 1+ protein, 3+ ketones, positive nitrates, 1+ bilirubin, trace leukocytes, 21-50 RBC, many squamous cells, 4+ urine bacteria. CXR and head CT were unremarkable. Abd/pelvis CT with acute pancreatitis without necrosis or pseudocyst and diffuse fatty liver. Patient received a dose of Rocephin, 2L of IV fluids with normal saline, and magnesium. Review of Systems Review of Systems: All systems reviewed & are unremarkable except as noted in HPI and below PMFSH Past Medical History Medical History Arthritis Benign essential HTN Diabetic gastroparesis associated with type 1 diabetes mellitus Diabetic neuropathy Elevated liver enzymes Obesity (BMI 30.0-34.9) Tobacco dependence Type 1 diabetes mellitus Type 1 diabetes mellitus with retinopathy Surgical History Surgical History No history of previous surgery Family History Family History Father Hypertension Patient's father is in good health Hyperlipidemia Mother Patient's mother is in good health Pacemaker Type 1 diabetes mellitus Sibling Patient's sister is in good health Grandparent Family history of type 2 diabetes mellitus Other Family history of allergic disorder Family history of malignant neoplasm Social History Social History Social History: She has been since 2012. She has smoked since she was in her early 20s. She has smoked as much as 1 pack of cigarettes per day. He is currently cut down to about 5 cigarettes a day. Approximately 2 to 3 times a month she will consume marijuana edibles. She has drank heavily every day since approximately 2017. 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 She drinks a 5th of hard liquor day. Interestingly enough her current job as a building pressure washer does not allow her to drink during her shift. She has 3 cats at home. She does not have any children. Code status: Full code Surrogate decision maker: Smoking packs per day: 1 Smoking cigarettes per day: 20.0 Years smoked: 23 Smoking pack-years: 23.00 Smoking status:
[2023-11-03 07:11] LABS: Troponin I < 0.012 ng/mL (0.000-0.034)
[2023-11-03 07:32] LABS: Glucose Point of Care 76 mg/dl (65-105)
[2023-11-03 09:55] LABS: Hemoglobin A1C 5.1 % (<5.7)
[2023-11-03] MEDS: DEXTROSE 5%/LACTATED RINGERS 1,000 ML 150 ML IV CONT (10:04)
[2023-11-03 11:34] LABS: Glucose Point of Care 109 mg/dl (65-105)
[2023-11-03] MEDS: ENOXAPARIN 40 MG/0.4 ML SYRINGE SUB-Q (12:10)
[2023-11-03] MEDS: THIAMINE HCL 100 MG TABLET PO (12:10)
[2023-11-03] MEDS: FOLIC ACID 1 MG TABLET PO (12:10)
--- NOTE | 2023-11-03 13:12 | P.CONGI_ITS ---
I, Satnam Martinez MD, have provided a substantive portion of the care of this patient and discussed the patient with my Nurse Practitioner. I have reviewed any new relevant radiographic and laboratory results including medications. I agree with her? documentation as noted below.?I personally performed the medical decision making and much of the history and exam for this encounter. briefly she is an alcoholic here with new onset of n/v, upper abdominal pain and admitted with alcoholic pancreatitis (this is second episode). Noted elevated liver enzymes, CT scan reviewed, also high CIWA score and treated with ativan/librium as needed, also thiamine. Continue supportive care, npo for now probably tomorrow liquid diet. Assessment and Plan Assessment and plan (1) Acute alcoholic pancreatitis: Code(s): K85.20 - Alcohol induced acute pancreatitis without necrosis or infection Status: Acute Assessment and Plan: -Dx with alcoholic pancreatitis, CT of the abdomen and pelvis with acute pancreatitis with no pancreatic necrosis or pseudocyst-no evidence of gallstones on CT imaging. -Lipase elevated greater than 2000 -Last episode of pancreatitis requiring hospitalization August 2022 -Supportive tx at this time with pain control and hydration -Advance diet with clear liquids tonight if pain continues to improve -Monitor kidney functions -Will check triglycerides in AM -Discussed with her regarding complete alcohol abstinence and consider rehab or counseling for this support (2) Transaminitis: Code(s): R74.01 - Elevation of levels of liver transaminase levels Status: Acute Assessment and Plan: Likely due to alcoholic fatty liver disease previous liver work up in 2020 was negative will check acute hepatitis panel monitor and trend LFTs at this time. (3) Alcohol abuse: Code(s): F10.10 - Alcohol abuse, uncomplicated Status: Acute Assessment and Plan: [facility] protocol thiamine, folic acid and MVI daily recommended Complete alcohol abstinence required (4) Urinary tract infection: Code(s): N39.0 - Urinary tract infection, site not specified Status: Acute (5) Benign essential HTN: Code(s): I10 - Essential (primary) hypertension Status: Acute (6) GERD with esophagitis: Code(s): K21.00 - Gastro-esophageal reflux disease with esophagitis, without bleeding Status: Acute Assessment and Plan: EGD 08/2022 with severe esophagitis asymptomatic at this time (7) Alcoholic fatty liver: Code(s): K70.0 - Alcoholic fatty liver Status: Acute GI Consult Note Consult date/time: 11/03/23 13:00 Reason for consult: Alcoholic pancreatitis HPI: Neva Chandler is a 43 year old female asked to be seen at the request of the hospitalist for acute pancreatitis. She has a past medical history of acute pancreatitis, type 1 diabetes, GERD with esophagitis, chronic alcohol abuse, hy pertension and neuropathy. She was admitted to [facility] August 2022 for acute pancreatitis. She states on Tuesday she began having epigastric abdominal pain with radiation to the back and bilateral upper quadrants with associated nausea and vomiting. Pain is worse with laying back. She tried to eat but immediately vomited. She denies any NSAID use prior. Denies any bouts of pancreatitis in between August and now. Denies any postprandial right upper quadrant pain with meals. Blood sugars have been well controlled per patient. She does have acid reflux on occasion and will take Tums but not problematic. Denies any change in bowel habits, const
--- NOTE | 2023-11-03 13:12 | WPDGICN ---
Assessment and Plan Assessment and plan (1) Acute alcoholic pancreatitis: Code(s): K85.20 - Alcohol induced acute pancreatitis without necrosis or infection Status: Acute Assessment and Plan: -Dx with alcoholic pancreatitis, CT of the abdomen and pelvis with acute pancreatitis with no pancreatic necrosis or pseudocyst-no evidence of gallstones on CT imaging. -Lipase elevated greater than 2000 -Last episode of pancreatitis requiring hospitalization August 2022 -Supportive tx at this time with pain control and hydration -Advance diet with clear liquids tonight if pain continues to improve -Monitor kidney functions -Will check triglycerides in AM -Discussed with her regarding complete alcohol abstinence and consider rehab or counseling for this support (2) Transaminitis: Code(s): R74.01 - Elevation of levels of liver transaminase levels Status: Acute Assessment and Plan: Likely due to alcoholic fatty liver disease previous liver work up in 2020 was negative 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 (3) Alcohol abuse: Code(s): F10.10 - Alcohol abuse, uncomplicated Status: Acute Assessment and Plan: [facility] protocol thiamine, folic acid and MVI daily recommended Complete alcohol abstinence required (4) Urinary tract infection: Code(s): N39.0 - Urinary tract infection, site not specified Status: Acute (5) Benign essential HTN: Code(s): I10 - Essential (primary) hypertension Status: Acute (6) GERD with esophagitis: Code(s): K21.00 - Gastro-esophageal reflux disease with esophagitis, without bleeding Status: Acute Assessment and Plan: EGD 08/2022 with severe esophagitis asymptomatic at this time (7) Alcoholic fatty liver: Code(s): K70.0 - Alcoholic fatty liver Status: Acute GI Consult Note Consult date/time: 11/03/23 13:00 Reason for consult: Alcoholic pancreatitis HPI: Neva Chandler is a 43 year old female asked to be seen at the request of the hospitalist for acute pancreatitis. She has a past medical history of acute pancreatitis, type 1 diabetes, GERD with esophagitis, chronic alcohol abuse, hypertension and neuropathy. She was admitted to [facility] August 2022 for acute pancreatitis. She states on Tuesday she began having epigastric abdominal pain with radiation to the back and bilateral upper quadrants with associated nausea and vomiting. Pain is worse with laying back. She tried to eat but immediately vomited. She denies any NSAID use prior. Denies any bouts of pancreatitis in between August and now. Denies any postprandial right upper quadrant pain with meals. Blood sugars have been well controlled per patient. She does have acid reflux on occasion and will take Tums but not problematic. Denies any change in bowel habits, constipation, diarrhea or melena. She states after her bout of pancreatitis in August 2022 C stop drinking for around 5 months. She admits to drinking 1/2 to 3/4 of a 750 mL of liquor daily for the past 10 months. She has never seeked to rehab or counseling for alcohol use disorder. In the ER she was found have a lipase of 2641, elevated lactic acid and elevated liver enzymes with T bili 2.3, AST 157, ALT 66 and alk phosphatase of 185. CT of the abdomen and pelvis noted acute pancreatitis without necrosis or pseudocyst and diffuse fatty liver. She was given 2 L of IV fluids with normal saline in the ER. She continues to be NPO, and was sleeping upon consult. States pain is 3/10 now in epigastric region. Last BM yesterday and passing gas. She wants water. EGD 08/[address] Bhatti for heartburn was severe diffuse esophagitis. EGD and colonoscopy in [address] Coats. Review of Systems Constitutional: Constitutional: Denies headache(s) and Denies weakness Eyes: Eyes: Denies blurry vision ENT: Reports Normal hearing present, Denies headache(
[2023-11-03] MEDS: LORazepam INJ (*CRX) 2 MG/ML VIAL IV PUSH (13:29)
[2023-11-03 14:00] VITALS: BP 120/76; PULSE 80; RESP 16; TEMP 36.7; O2SAT 100
[2023-11-03 16:35] LABS: Glucose Point of Care 178 mg/dl (65-105)
[2023-11-03 20:09] VITALS: BP 124/72; PULSE 79; RESP 20; TEMP 36.4; O2SAT 10
[2023-11-03 21:27] LABS: Glucose Point of Care 351 mg/dl (65-105)
[2023-11-03 21:27] LABS: Glucose Point of Care 340 mg/dl (65-105)
[2023-11-03] MEDS: INSULIN ASPART (*BKC) 100 UNITS/ML 6 UNITS SUB-Q (21:53)
[2023-11-04 00:36] LABS: Glucose Point of Care 188 mg/dl (65-105)
[2023-11-04 03:49] VITALS: BP 120/77; PULSE 85; RESP 18; TEMP 36.4; O2SAT 9
[2023-11-04 05:25] LABS: Glucose Point of Care 152 mg/dl (65-105)
[2023-11-04 06:14] LABS: Basophils Absolute Auto 0.1 K/mm3 (0.0-0.1); Eosinophils Absolute Auto 0.2 K/mm3 (0-0.3); Eosinophils Percent Auto 2.5 % (0-4.4); Hemoglobin 11.3 g/dL (12.0-15.0); Immature Granulocyte Absolute 0.04 K/mm3 (0.00-0.031); Immature Granulocyte Percent A 0.5 % (0-0.5); Lymphocytes Absolute Auto 2.09 K/mm3 (0.9-3.2); Lymphocytes Percent Auto 27.1 % (18.3-44.2); Mean Corpuscular HGB Conc 29.7 g/dl (32-36); Mean Corpuscular Hemoglobin 27.2 pg (26-34); Mean Corpuscular Volume 91.6 fl (80-100); Mean Platelet Volume 12.6 fl (7.4-10.4); Monocytes Absolute Auto 0.9 K/mm3 (0.1-0.6); Neutrophils Absolute Auto 4.5 K/mm3 (1.3-6.7); Neutrophils Percent Auto 57.9 % (45.5-73.1); Nucleated Red Blood Cells Perc 0.4 % (0.0-0.2); Platelet Count Result 201 k/mm3 (150-375); Red Blood Count 4.15 M/mm3 (4.2-5.4); Red Cell Distribution Width 21.9 % (11.5-14.5); White Blood Count 7.7 K/mm3 (4.5-10.0)
[2023-11-04 06:44] LABS: LDL Cholesterol Direct 73 mg/dL
[2023-11-04 06:49] LABS: Alanine Aminotransferase 55 U/L (6-35); Albumin Level 3.8 g/dL (3.5-5.1); Alkaline Phosphatase 187 U/L (38-126); Aspartate Amino Transferase 138 U/L (14-36); Bilirubin,Total 2.1 mg/dL (0.2-1.3); Blood Urea Nitrogen 3 mg/dL (7-17); Calcium 8.7 mg/dL (8.4-10.2); Carbon Dioxide 24 mmol/L (22-30); Cholesterol 176 mg/dL (0-200); Estimated CRCL calculation 145 ml/min; Estimated Glomerular Filt Rate > 60; Glucose 151 mg/dL (65-110); Lipase 694 U/L (23-300); Magnesium 1.6 mg/dL (1.6-2.3); Potassium 3.2 mmol/L (3.4-5.0); Sodium 132 mmol/L (137-145); Triglycerides 94 mg/dL (<150)
--- NOTE | 2023-11-04 06:49 | P.PNIM_ITS ---
Progress Note: A&P Assessment and Plan (1) Acute alcoholic pancreatitis: Code(s): K85.20 - Alcohol induced acute pancreatitis without necrosis or infection Status: Acute Assessment and Plan: 11/03/23 * Drinks 1/2-3/4 750ml Tequila daily since December 2022. Denies history of alcohol withdrawal symptoms. * Symptoms: nausea, epigastric and LUQ pain radiating to back * Abd/pelvis CT with acute pancreatitis without necrosis or pseudocyst and diffuse fatty liver. No evidence of gallstones. * Lipase 2641 * GI consulted. Recommend supportive treatment at this time with pain control and hydration. * D5/LR @ 150 ml/hr IV * Tylenol and morphine for pain PRN * Advance to clear liquid diet as tolerated * Continue to monitor labs and VS * Monitor kidney function 11/04/23 * Symptoms: Epigastric pain without radiation not requiring pain medication * Lipase 694. Continues to downtrend. * LR IV @ 150 ml/hr * Continue current treatment (2) Urinary tract infection: Qualifiers: Urinary tract infection type: site unspecified Code(s): N39.0 - Urinary tract infection, site not specified Status: Acute Assessment and Plan: 11/03/23 * Sx: dark appearance * Urinalysis: turbid appearance, 1+ protein, 3+ ketones, positive nitrates, 1+ bilirubin, trace leukocytes, 21-50 RBC, many squamous cells, 4+ urine bacteria. Possible contamination due to the presence of many squamous cells. * Urine culture pending. * Will continue Rocephin and adjust according to urine culture results. 11/04/23 * Symptoms: Per patient urine is clear. Reports frequency. * Urine culture: pending * Continue Rocephin. (3) Alcoholic ketosis: Code(s): E88.89 - Other specified metabolic disorders Status: Acute Assessment and Plan: 11/03/23 * Bicarb 20 with anion gap of 17. Beta hydroxybutyrate 2.92. 3+ ketones noted in urinalysis. Blood glucose is 127. * D5/LR @ 150 ml/hr IV * Thiamine 100 mg daily * Folic acid 1 mg daily * Multivitamin * Continue to monitor labs 11/04/23 * K 3.2. Received 40 meq KCL PO once. Will continue to monitor K. * Blood glucose 151. * LR IV @ 150 ml/hr IV * Continue current treatment. (4) Alcohol abuse: Code(s): F10.10 - Alcohol abuse, uncomplicated Status: Acute Assessment and Plan: 11/03/2023 * Drinks 1/2-3/4 750ml Tequila daily since December 2022. Denies history of alcohol withdrawal symptoms. * PAWSS score 2 * [facility] protocol in place * Q4 neuro checks * D5/LR @ 150 ml/hr IV * Thiamine 100 mg daily * Folic acid 1 mg daily * Multivitamin * Discussed with patient the importance of alcohol cessation. She denies seeking rehab or counseling for alcohol abuse. 11/04/23 * Denies withdrawal symptoms at this time. * LR IV @150 ml/hr * Continue current treatment. (5) Transaminitis: Code(s): R74.01 - Elevation of levels of liver transaminase levels Status: Acute Assessment and Plan: 11/03/23 * Likely related to her chronic alcohol use * Bilirubin 2.3, AST 157, ALT 66, Alk phos 185 * Continue to monitor LFTs * Hepatitis and lipid panel ordered. * Avoid hepatotoxic medications 11/04/23 * Bilirubin 2.1, AST 138, ALT 55, Alk phos 187 * Lipid panel: Triglycerides 94, Cholesterol 176, LDL 73, HDL 96 * Hepatitis panel: negative * Continue current treatment (6) Diabetes mellitus with retinopathy, with long-term current use of insulin: Code(s): E11.319 - Type 2 diabetes mellitus with unspecified diabetic retinopathy without macular edema; Z79.
--- NOTE | 2023-11-04 06:49 | PM.IMPN ---
Progress Note: A&P Assessment and Plan (1) Acute alcoholic pancreatitis: Code(s): K85.20 - Alcohol induced acute pancreatitis without necrosis or infection Status: Acute Assessment and Plan: 11/03/23 Drinks 1/2-3/4 750ml Tequila daily since December 2022. Denies history of alcohol withdrawal symptoms. Symptoms: nausea, epigastric and LUQ pain radiating to back Abd/pelvis CT with acute pancreatitis without necrosis or pseudocyst and diffuse fatty liver. No evidence of gallstones. Lipase 2641 GI consulted. Recommend supportive treatment at this time with pain control and hydration. D5/LR @ 150 ml/hr IV Tylenol and morphine for pain PRN Advance to clear liquid diet as tolerated Continue to monitor labs and VS Monitor kidney function 11/04/23 Symptoms: Epigastric pain without radiation not requiring pain medication Lipase 694. Continues to downtrend. LR IV @ 150 ml/hr Continue current treatment (2) Urinary tract infection: Qualifiers: Urinary tract infection type: site unspecified Code(s): N39.0 - Urinary tract infection, site not specified Status: Acute Assessment and Plan: 11/03/23 Sx: dark appearance Urinalysis: turbid appearance, 1+ protein, 3+ ketones, positive nitrates, 1+ bilirubin, trace leukocytes, 21-50 RBC, many squamous cells, 4+ urine bacteria. Possible contamination due to the presence of many squamous cells. Urine culture pending. Will continue Rocephin and adjust according to urine culture results. 11/04/23 Symptoms: Per patient urine is clear. Reports frequency. Urine culture: pending Continue Rocephin. (3) Alcoholic ketosis: Code(s): E88.89 - Other specified metabolic disorders Status: Acute Assessment and Plan: 11/03/23 Bicarb 20 with anion gap of 17. Beta hydroxybutyrate 2.92. 3+ ketones noted in urinalysis. Blood glucose is 127. D5/LR @ 150 ml/hr IV Thiamine 100 mg daily Folic acid 1 mg daily Multivitamin Continue to monitor labs 11/04/23 K 3.2. Received 40 meq KCL PO once. Will continue to monitor K. Blood glucose 151. LR IV @ 150 ml/hr IV Continue current treatment. (4) Alcohol abuse: Code(s): F10.10 - Alcohol abuse, uncomplicated Status: Acute Assessment and Plan: 11/03/2023 Drinks 1/2-3/4 750ml Tequila daily since December 2022. Denies history of alcohol withdrawal symptoms. PAWSS score [address] Q4 neuro checks D5/LR @ 150 ml/hr IV Thiamine 100 mg daily Folic acid 1 mg daily Multivitamin Discussed with patient the importance of alcohol cessation. She denies seeking rehab or counseling for alcohol abuse. 11/04/23 Denies withdrawal symptoms at this time. LR IV @150 ml/hr Continue current treatment. (5) Transaminitis: Code(s): R74.01 - Elevation of levels of liver transaminase levels Status: Acute Assessment and Plan: 11/03/23 Likely related to her chronic alcohol use Bilirubin 2.3, AST 157, ALT 66, Alk phos 185 Continue to monitor LFTs Hepatitis and lipid panel ordered. Avoid hepatotoxic medications 11/04/23 Bilirubin 2.1, AST 138, ALT 55, Alk phos 187 Lipid panel: Triglycerides 94, Cholesterol 176, LDL 73, HDL 96 Hepatitis panel: negative Continue current treatment (6) Diabetes mellitus with retinopathy, with long-term current use of insulin: Code(s): E11.319 - Type 2 diabetes mellitus with unspecified diabetic retinopathy without macular edema; Z79.4 - middle or intermediate school principal (current) use of insulin Status: Acute Assessment and Plan: 11/03/23 A1c 5.1 Blood glucose well controlled. Per RN patient began to feel symptomatic when her continuous blood glucose monitor read 71. Switched her fluids from NS to D5/LR at that time. Continue to monitor bedside glucose Continue sliding scale insulin 11/04/23 POC glucose remains elevated. Diet advanced to diabetic consistent carbohydrate diet. Fluids changed to LR IV 150ml/hr. Cont
[2023-11-04 06:50] LABS: Anion Gap 10 mmol/L (8-16); Chloride 98 mmol/L (98-107)
[2023-11-04 06:58] LABS: Hepatitis B Surface Antigen Negative (Negative)
[2023-11-04 07:03] LABS: HAV RESULT Negative (Negative); Hepatitis B Core IgM Result Negative (Negative)
[2023-11-04 07:15] LABS: Hepatitis C Virus Antibody Negative (Negative); Hypochromasia 1+ (NORMAL); Platelet Estimate Adequate (Adequate); Schistocytes None Seen (NORMAL)
[2023-11-04 07:16] LABS: Anisocytosis 2+ (NORMAL); Macrocytosis 1+ (NORMAL)
[2023-11-04 07:29] LABS: Glucose Point of Care 175 mg/dl (65-105)
[2023-11-04 07:37] LABS: Folic Acid 16.7 ng/mL (2.76->20)
[2023-11-04 07:43] LABS: HDL Direct 96 mg/dL
[2023-11-04] MEDS: POTASSIUM CHLORIDE 20 MEQ ER TABLET 40 MEQ PO (08:32)
[2023-11-04] MEDS: ENOXAPARIN 40 MG/0.4 ML SYRINGE SUB-Q (08:32)
[2023-11-04] MEDS: THERAPEUTIC MULTIVITAMINS/MINERALS TAB (*BKC) 1 TABLET PO (08:33)
[2023-11-04] MEDS: PANTOPRAZOLE 40 MG TABLET PO (08:33)
[2023-11-04] MEDS: THIAMINE HCL 100 MG TABLET PO (08:33)
[2023-11-04] MEDS: FOLIC ACID 1 MG TABLET PO (08:33)
[2023-11-04] MEDS: LACTATED RINGERS 1,000 ML 150 ML IV CONT (08:37)
[2023-11-04 11:38] LABS: Glucose Point of Care 302 mg/dl (65-105)
[2023-11-04] MEDS: INSULIN ASPART (*BKC) 100 UNITS/ML SUB-Q (11:41)
[2023-11-04 14:00] VITALS: BP 117/84; PULSE 100; RESP 16; TEMP 36.4; O2SAT 98
--- NOTE | 2023-11-04 15:19 | PM.DS ---
DS: Admitting Diagnosis Discharge Date 11/04/2023 Admitting Diagnosis Alcoholic pancreatitis Urinary tract infection Alcoholic ketosis Alcohol abuse Diabetes mellitus type I Transaminitis Nicotine dependence DS: Discharge Diagnosis Discharge Diagnosis (1) Acute alcoholic pancreatitis: Code(s): K85.20 - Alcohol induced acute pancreatitis without necrosis or infection Status: Acute (2) Urinary tract infection: Qualifiers: Urinary tract infection type: site unspecified Code(s): N39.0 - Urinary tract infection, site not specified Status: Acute (3) Alcoholic ketosis: Code(s): E88.89 - Other specified metabolic disorders Status: Acute (4) Alcohol abuse: Code(s): F10.10 - Alcohol abuse, uncomplicated Status: Acute (5) Transaminitis: Code(s): R74.01 - Elevation of levels of liver transaminase levels Status: Acute (6) Diabetes mellitus with retinopathy, with long-term current use of insulin: Code(s): E11.319 - Type 2 diabetes mellitus with unspecified diabetic retinopathy without macular edema; Z79.4 - shelter (current) use of insulin Status: Acute (7) Tobacco dependence: Code(s): F17.200 - Nicotine dependence, unspecified, uncomplicated Status: Acute DS: Summary Hospital Course Reason for hospitalization: Alcoholic pancreatitis Urinary tract infection Alcoholic ketosis Alcohol abuse Diabetes mellitus type I Transaminitis Nicotine dependence Hospital Course: 11/03/23 43 year old female with significant past medical history of alcoholism, pancreatitis, type 1 diabetes, and tobacco dependence (6 pack year). Patient presented to hospital from home for nausea, vomiting, and pain in the epigastric and LUQ regions for the past 2 days. She previously had pancreatitis in August 2022 and states this pain feels similar. She rates her pain a 4 with radiation to the back. She denies fever, diarrhea, hematemesis, and hematochezia. She drinks 1/2-3/4 of 750 ml of Tequila per day since December 2022. She notes that prior to December 2022 she still drank heavily, but not to this current extent. 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 Due to her previous pancreatitis in 2022 she stopped drinking completely for 5 months and denies withdrawal symptoms at that time. She notes that her urine has been dark, but denies changes in urinary frequency/urgency, burning and pain with urination. She notes that in the ED she had left sided chest pain under her breast which has since subsided. VS upon arrival: AF, HR 107, RR 16, SpO2 100% RA, BP 132/91 ED workup included a CBC without leukocytosis and mild anemia with H/H 10.5/33.0. Chemistry significant for Sodium 132, Chloride 95, Bicarb 20 with anion gap of 17. She has an elevated lactic acid of 2.9. Lipase is concerning at 2641. Her glucose is 127. Beta hydroxybutyrate is 2.92.? Bilirubin is 2.3 and LFTs are elevated with AST 157, ALT 66, and Alk phos 185. Mg was 1.2. Troponin was negative and EKG showed sinus rhythm without ischemic changes. Urinalysis had a turbid appearance, 1+ protein, 3+ ketones, positive nitrates, 1+ bilirubin, trace leukocytes, 21-50 RBC, many squamous cells, 4+ urine bacteria. CXR and head CT were unremarkable. Abd/pelvis CT with acute pancreatitis without necrosis or pseudocyst and diffuse fatty liver. Patient received a dose of Rocephin, 2L of IV fluids with normal saline, and magnesium. 11/04/23 Over night patient had elevated POC glucose levels. The D5/LR was changed to LR. Her lipase levels are downtrending. Her K 3.2 on AM labs and was given 40 meq PO. She continues have mild epigastric pain, rating is a 3-5/10 and is not requiring any pain medication. She handled a clear liquid diet well and is was advanced to a diabetic diet. Discussed with patient to start advancing her diet slowly and as tolerated. She denies nausea, vomiting, and increased pain following lunch. She
--- NOTE | 2023-11-10 09:08 | PC.NURSE ---
Urine culture growing Dipti Tropicalis. No susceptibility testing was performed.
== END 2023-11-04 15:35 | disposition home or self-care (01) | DRG 439 ==
LOC: ANHED 11-03 05:03 → ANH3MEDSUR 11-03 05:36
PROVIDERS: Nurse Practitioner; Physician Assistant; Student in an Organized Health Care Education/Training Program; Admitting Provider Internal Medicine; Emergency Provider Emergency Medicine; PCP Family Medicine; Visit Provider Internal Medicine
DX: K85.20 Alcohol induced acute pancreatitis without necrosis or infection (principal); B37.49 Other urogenital candidiasis; E10.319 Type 1 diabetes mellitus with unspecified diabetic retinopathy without macular edema; E10.40 Type 1 diabetes mellitus with diabetic neuropathy, unspecified; E88.89 Other specified metabolic disorders; F10.20 Alcohol dependence, uncomplicated; F17.210 Nicotine dependence, cigarettes, uncomplicated; I10 Essential (primary) hypertension; K70.0 Alcoholic fatty liver; M19.90 Unspecified osteoarthritis, unspecified site; R74.01 Elevation of levels of liver transaminase levels; Z79.4 Long term (current) use of insulin
CPT/HCPCS: 36415; 70450; 71045; 74177; 80053; 80061; 80074; 81001; 81025; 82010; 82248; 82607; 82746; 82948; 83036; 83605; 83690; 83735; 84443; 84484; 85025; 87077; 87086; 87088; 93005; 96361; 96365; 96375; 99285; A9270; J0696; J1650; J1815; J2060; J2270; J2405; J3411; J3475; J7030; J7120; J7121; Q9967

== ENCOUNTER 2024-05-02 14:26 | Observation (INO) | payer OTHER, SELFPAY ==
--- NOTE | ~2024-05-02 | CT_ITS ---
EXAMINATION: CT abdomen pelvis w con DATE: 05/02/2024 16:59 INDICATION: Nausea and vomiting. TECHNIQUE: Computed tomography (CT) of the abdomen and pelvis was performed with 100 mL Omnipaque 350 intravenous contrast. Automated exposure control and iterative reconstruction technique were employe d. The dose-length product was 555.43 mGy-cm. COMPARISON: CT abdomen and pelvis 11/03/2023 FINDINGS: The visualized portions of lung bases demonstrate mild atelectasis. No pleural effusion. Th e heart size is normal. No pericardial effusion. There is diffuse hepatic steatosis. The gallbladder, spleen, pancreas, adrenal glands, and kidneys are normal. There is a 6.9 cm fibroid in the uterus. T he appendix is normal. There are no pathologically enlarged lymph nodes. There is no ascites. There i s mild thoracic and lumbar spondylosis. IMPRESSION: 1. Diffuse hepatic steatosis. 2. Uterine fibroid. Reviewed, dictated and finalized at location A.
[2024-05-02 14:34] VITALS: BP 133/78; PULSE 105; RESP 16; TEMP 36.6; O2SAT 100
--- NOTE | 2024-05-02 14:40 | ECG_ITS ---
Test Date: 2024-05-02 16:28:18 Measurements Intervals Ransom Rate: 105 P: 52 TN: 131 QRS: 21 QRSD: 87 T: 45 QT: 338 QTc: 448 Interpretive Statements SINUS TACHYCARDIA DELAYED PRECORDIAL R/S TRANSITION BASELINE ARTIFACT- I, II, III, AVR, AVL, AVF BORDERLINE ECG No previous ECG available for comparison Electronically Signed On 05-02-2024 19:59:24 CDT by Nirmal Pierce D.O.
--- NOTE | 2024-05-02 14:41 | ED.ABDPAIN ---
HPI - Abdominal Pain General Chief Complaint: Abdominal Pain <Jyoti Vega PA-C - Last Filed: 05/02/24 14:43> Stated Complaint: n/v, my pancreas hurts <Jyoti Vega PA-C - Last Filed: 05/02/24 14:43> Time Seen by Provider: 05/02/24 15:22 <Jyoti Vega PA-C - Last Filed: 05/02/24 14:43> Focused HPI: 44-year-old female with history of pancreatitis and alcohol abuse presents to the emergency department for nausea, vomiting and epigastric abdominal pain for several weeks. She went to her PCPs office who advised her to come to the ED for further evaluation. She normally drinks a half of a 750 mL bottle of Tequila daily for several years. Her last drink was at 4:00 a.m. this morning. She denies hematochezia, melena, coffee-ground emesis, hematemesis, fever, prior abdominal surgeries. GENERAL: Ill-appearing, actively vomiting on exam HEAD: Normocephalic, atraumatic. ABD: Soft with tenderness in epigastrium. No rebound, guarding or rigidity. No CVA tenderness. CHEST: Clear to auscultation. ?No respiratory distress. HEART: Regular rate and rhythm.? NEURO: ?Alert and oriented x3. Patient screened in triage and initial orders placed.? ?Additional care and disposition to be based upon?diagnostic testing and treatment. <Jyoti Vega PA-C - Last Filed: 05/02/24 14:43> History of Present Illness HPI narrative: I agree with Jyoti Vega PA-C's assessment above. <Soledad Saunders, TAMIKO - Last Filed: 05/02/24 18:50> Related Data Home Medications: Home Medications Medication Instructions Recorded Confirmed womans multiple vitamin 1 cap PO DAILY 01/10/23 05/02/24 insulin glargine U-300 conc 300 16 unit subcut DAILY 05/02/24 05/02/24 unit/mL (1.5 mL) subcutaneous pen (Toujeo SoloStar U-300 Insulin) insulin lispro 100 unit/mL 4 - 6 sliding scale dose subcut 05/02/24 05/02/24 subcutaneous pen TIDWMEAL PRN Elevated Blood Glucose <Jyoti Vega PA-C - Last Filed: 05/02/24 14:43> Allergies/Adverse Reactions: Allergies Allergy/AdvReac Type Severity Reaction Status Date / Time lactase [From Dairy Aid] Allergy Nausea and Verified 05/02/24 14:41 Vomiting <Jyoti Vega PA-C - Last Filed: 05/02/24 14:43> Review of Systems Review of Systems: All systems reviewed & are unremarkable except as noted in HPI and below <Soledad Saunders APRN - Last Filed: 05/02/24 18:50> [facility] Past Medical History Medical History: Medical History (Updated 05/03/24 @ 16:03 by Latia Lucas MD) Arthritis Benign essential HTN Diabetic gastroparesis associated with type 1 diabetes mellitus Diabetic neuropathy Elevated liver enzymes Obesity (BMI 30.0-34.9) Tobacco dependence Type 1 diabetes mellitus Type 1 diabetes mellitus with retinopathy Ulcerative esophagitis <Jyoti Vega PA-C - Last Filed: 05/02/24 14:43> Surgical History Surgical History: Surgical History (Updated 05/03/24 @ 09:32 by Mary Garcia DO) History of esophagogastroduodenoscopy (EGD) (12/2020) <Jyoti Vega PA-C - Last Filed: 05/02/24 14:43> Family History Family History: Family History Father Hypertension Patient's father is in good health Hyperlipidemia Mother Patient's mother is in good health Pacemaker Type 1 diabetes mellitus Sibling Patient's sister is in good health Grandparent Family history of type 2 diabetes mellitus Other Family history of allergic disorder Family history of malignant neoplasm <Jyoti Vega PA-C - Last Filed: 05/02/24 14:43> Social History Social History: Social History Social History: She has been since 2012. She has smoked since she was in her early 20s. She has smoked as much as 1 pack of cigarettes per day. He is currently cut down to about 5 cigarettes a day. Approximatel
[2024-05-02 14:51] VITALS: BP 135/87; PULSE 94; RESP 15; O2SAT 100
--- NOTE | 2024-05-02 14:56 | PC.NURSE ---
pt says she drinks tequila around 250-370 mL everyday
[2024-05-02] MEDS: SODIUM CHLORIDE 0.9% IV 1,000 ML 999 ML IV CONT ×2 (14:58→18:32)
[2024-05-02] MEDS: ONDANSETRON INJ 4 MG/2 ML VIAL IV PUSH (14:58)
[2024-05-02 15:07] LABS: Basophils Absolute Auto 0.1 K/mm3 (0.0-0.1); Basophils Percent Auto 1.5 % (0.2-1.2); Eosinophils Percent Auto 0.5 % (0-4.4); Hematocrit 37.6 % (37.0-47.0); Hemoglobin 11.5 g/dL (12.0-15.0); Immature Granulocyte Absolute 0.02 K/mm3 (0.00-0.031); Immature Granulocyte Percent A 0.3 % (0-0.5); Lymphocytes Absolute Auto 1.17 K/mm3 (0.9-3.2); Lymphocytes Percent Auto 18.9 % (18.3-44.2); Mean Corpuscular HGB Conc 30.6 g/dl (32-36); Mean Corpuscular Hemoglobin 27.2 pg (26-34); Mean Corpuscular Volume 88.9 fl (80-100); Mean Platelet Volume 11.4 fl (7.4-10.4); Monocytes Absolute Auto 0.9 K/mm3 (0.1-0.6); Monocytes Percent Auto 14.9 % (2.6-8.5); Neutrophils Percent Auto 63.9 % (45.5-73.1); Platelet Count Result 268 k/mm3 (150-375); Red Blood Count 4.23 M/mm3 (4.2-5.4); Red Cell Distribution Width 19.8 % (11.5-14.5); White Blood Count 6.2 K/mm3 (4.5-10.0)
[2024-05-02 15:15] LABS: Alanine Aminotransferase 114 U/L (6-35); Albumin Level 4.6 g/dL (3.5-5.1); Alkaline Phosphatase 311 U/L (38-126); Anion Gap 19 mmol/L (4-12); Aspartate Amino Transferase 406 U/L (14-36); Bilirubin,Total 2.4 mg/dL (0.2-1.3); Blood Urea Nitrogen 8 mg/dL (7-17); Calcium 9.2 mg/dL (8.4-10.2); Carbon Dioxide 26 mmol/L (22-30); Chloride 89 mmol/L (98-107); Estimated CRCL calculation 118 ml/min; Estimated Glomerular Filt Rate > 60; Glucose 192 mg/dL (65-110); Lipase 863 U/L (23-300); Potassium 3.6 mmol/L (3.4-5.0); Sodium 134 mmol/L (137-145)
[2024-05-02 15:35] LABS: Ethanol < 10 mg/dL (<10)
[2024-05-02] MEDS: LORazepam INJ (*CRX) 2 MG/ML VIAL 1 MG IV PUSH (15:42)
[2024-05-02 16:17] LABS: Lactic Acid Reflex 2.9 mmol/L (0.7-2.0)
[2024-05-02 16:34] VITALS: BP 117/82; PULSE 92; RESP 16; O2SAT 97
[2024-05-02 16:35] LABS: BEDSIDEPREGUCG Negative
[2024-05-02 16:49] LABS: Add Urine Microscopic? YES; Appearance Urine Turbid (Clear); Bacteria Urine 4+ /hpf; Bilirubin Urine 3+ (Negative); Blood Urine 2+ (Negative); Budding Yeast Urine Present /hpf; Color Urine Dark Yellow (Yellow); Glucose Urine UA Trace mg/dL (Negative); Ketones Urine 4+ mg/dL (Negative); Leukocyte Esterase Ur 1+ LEU/UL (Negative); Need Manual Microscopic Reviewed; Nitrate Urine Positive (Negative); Non Pathogenic Casts >20; Protein Urine 2+ mg/dL (Negative); RBC Urine 51-100 /hpf (0-2); Specific Grav Ur 1.038 (1.001-1.035); Squamous Epithelial Cell Urine Many /hpf (Few); WBC Urine 0-5 /hpf (0-3); pH Urine 5.5 (5.0-9.0)
[2024-05-02 17:14] LABS: Amphetamine Screen Urine Negative (Negative); Barbiturate Screen Urine Negative (Negative); Benzodiazepines Screen Urine Negative (Negative); Cannabinoid Screen Urine Positive (Negative); Cocaine Screen Urine Negative (Negative); Methadone Screen Urine Negative (Negative); Opiate Screen Urine Negative (Negative); Phencyclidine Screen Urine Negative (Negative)
[2024-05-02] MEDS: THIAMINE HCL 200 MG/2 ML VIAL 100 MG IV PUSH (17:47)
[2024-05-02 18:11] LABS: Fractional Inspired Oxygen 21 %; HCO3 VBG 26.9 mEq/l (24.0-30.0); PCO2 VBG 36.3 mmHg (42.0-48.0); PO2 VBG 67.5 mmHg (35.0-45.0)
[2024-05-02 18:15] LABS: pH VBG 7.488 (7.300-7.400)
[2024-05-02 18:30] LABS: Magnesium 1.2 mg/dL (1.6-2.3)
[2024-05-02 18:35] VITALS: BP 108/67; PULSE 97; RESP 18; O2SAT 97
[2024-05-02] MEDS: FOLIC ACID 1 MG TABLET PO (18:39)
[2024-05-02 19:02] LABS: Reflex Lactic Acid Yes or No Add Lactic
[2024-05-02 19:42] VITALS: BP 117/78; PULSE 96; RESP 18; O2SAT 99
--- NOTE | 2024-05-02 19:42 | PC.NURSE ---
blood sugar is 156 at this time
[2024-05-02 19:44] LABS: Lactic Acid 1.5 mmol/L (0.7-2.0)
[2024-05-02 19:46] LABS: Glucose Point of Care 156 mg/dl (65-105)
[2024-05-02 19:46] LABS: Beta-Hydroxybutyrate/Acetoacetate 2.44 mmol/L (0.02-0.27)
[2024-05-02 21:14] VITALS: BP 108/67; PULSE 97; RESP 20; TEMP 36.6; O2SAT 98; BMI 27.4
[2024-05-02 21:17] LABS: Folic Acid 8.6 ng/mL (2.76->20)
[2024-05-02 23:05] LABS: Glucose Point of Care 274 mg/dl (65-105)
[2024-05-03] VITALS (9 sets, daily range): BP systolic 95–119; BP diastolic 53–76; PULSE 72–98; RESP 12–18; TEMP 36.4–36.8; O2SAT 96–99; BMI 27.4
[2024-05-03] MEDS: LACTATED RINGERS 1,000 ML 100 ML IV CONT (00:28)
[2024-05-03 05:10] LABS: Glucose Point of Care 162 mg/dl (65-105)
[2024-05-03 06:59] LABS: Hematocrit 30.3 % (37.0-47.0); Mean Corpuscular HGB Conc 29.7 g/dl (32-36); Mean Platelet Volume 11.9 fl (7.4-10.4); Platelet Count Result 184 k/mm3 (150-375); Red Blood Count 3.33 M/mm3 (4.2-5.4); Red Cell Distribution Width 19.7 % (11.5-14.5); White Blood Count 4.9 K/mm3 (4.5-10.0)
[2024-05-03 07:08] LABS: Anion Gap 17 mmol/L (4-12); Blood Urea Nitrogen 5 mg/dL (7-17); Calcium 8.1 mg/dL (8.4-10.2); Carbon Dioxide 21 mmol/L (22-30); Chloride 93 mmol/L (98-107); Estimated CRCL calculation 143 ml/min; Estimated Glomerular Filt Rate > 60; Glucose 206 mg/dL (65-110); Lipase 838 U/L (23-300); Potassium 3.7 mmol/L (3.4-5.0); Sodium 131 mmol/L (137-145)
--- NOTE | 2024-05-03 09:17 | PM.IMHP ---
H&P: HPI History of Present Illness Date/Time: 05/03/24 09:17 Chief Complaint: Nausea and vomiting, ?Abdominal pain like when I have pancreatitis? Narrative: 44-year-old with a past medical history gastroparesis type 1 diabetes mellitus alcoholism and prior admissions for pancreatitis who presented to the ER with nausea, vomiting and epigastric pain similar to her prior episodes of pancreatitis is been ongoing on and off for the last several weeks. She reports that she has been having bandlike pain in her ?area of where her pancreas and liver are that radiates to the back ?just like her prior episodes of pancreatitis. Pain is been as bad as an 8/10 in intensity and is aching in nature. She has also had intermittent burning epigastric pain that does go upper esophagus. She went to her primary care provider's office who director go to the ER. She drinks between 500 mL to 750 mL of Tequila daily she has done this for about 8 years. Her last drink was at 04:00 on the . She has had prior episodes of withdrawal which symptoms include tremors, irritability, nausea and restlessness/insomnia. She reports significant nausea with symptoms with decreased oral intake. She denies any hematochezia, melena, coffee-ground emesis or hematemesis. She has not had any fevers or chills. She has been having some soft brown stools but no overt diarrhea. Her weight has been stable. Her also drinks heavily. She has not seriously try to quit drinking alcohol. She does work as a clerk supervisor but does not drink at work because she works at a higher end establishment that does not allow on the job drinking. She has taken her THC edibles and marijuana without any relief in symptoms. She reports that her pain has improved significantly since his admission and is currently a 2/10 in intensity. In the ER she was noted have respiratory alkalosis on VBG, stable chronic hyponatremia, low serum bicarb, glucose of 26, magnesium of 1.2, lactic acidosis of 2.9. Her lipase was similar to prior values when she was admitted for alcoholic pancreatitis. Her beta hydroxybutyrate was 2.4 her UA was significantly concentrated with 2+ protein 4+ ketones positive nitrates bilirubin and 1+ esterase with 51-100 wbc's. Her urine had many squamous cells. She denies any urinary symptoms. Her white count was normal. Review of Systems Review of Systems: 12 systems were reviewed with pertinent positives and negatives per HPI. Except as documented in the HPI, all other systems were reviewed and are negative. [facility] Past Medical History Medical History (Updated 05/03/24 @ 09:38 by Mary Garcia DO) Arthritis Benign essential HTN Diabetic gastroparesis associated with type 1 diabetes mellitus Diabetic neuropathy Elevated liver enzymes Obesity (BMI 30.0-34.9) Tobacco dependence Type 1 diabetes mellitus Type 1 diabetes mellitus with retinopathy Ulcerative esophagitis Surgical History Surgical History (Updated 05/03/24 @ 09:32 by Mary Garcia DO) History of esophagogastroduodenoscopy (EGD) (12/2020) Family History Family History Father Hypertension Patient's father is in good health Hyperlipidemia Mother Patient's mother is in good health Pacemaker Type 1 diabetes mellitus Sibling Patient's sister is in good health Grandparent Family history of type 2 diabetes mellitus Other Family history of allergic disorder Family history of malignant neoplasm Social History Social History Social History: She has been since 2012. She has smoked since she was in her early 20s. She has smoked as much as 1 pack of cigarettes per day. He is currently cut down to about 5 cigarettes a day. Approximately 2 to 3 times a month she will consume marijuana edibles. She has drank heavily every day since approximately 2017. She started drinking heavily
[2024-05-03] MEDS: MAGNESIUM SULF 4 GM/WATER100ML 4 GM/100 ML BAG IVPB (09:56)
[2024-05-03] MEDS: FOLIC ACID 1 MG TABLET PO (09:57)
[2024-05-03] MEDS: LACTATED RINGERS 1,000 ML 150 ML IV CONT ×2 (09:57→20:03)
[2024-05-03] MEDS: PANTOPRAZOLE 40 MG TABLET PO ×2 (09:57→20:56)
[2024-05-03] MEDS: chlordiazePOXIDE (*CRX) 25 MG CAPSULE PO (09:57)
[2024-05-03] MEDS: THIAMINE HCL 100 MG TABLET PO (09:57)
[2024-05-03 10:12] LABS: Alanine Aminotransferase 78 U/L (6-35); Albumin Level 3.2 g/dL (3.5-5.1); Alkaline Phosphatase 212 U/L (38-126); Aspartate Amino Transferase 213 U/L (14-36); Bilirubin,Total 1.4 mg/dL (0.2-1.3)
[2024-05-03] MEDS: INSULIN ASPART (*BKC) 100 UNITS/ML SUB-Q ×3 (11:36→20:56)
[2024-05-03 11:55] LABS: Glucose Point of Care 314 mg/dl (65-105)
--- NOTE | 2024-05-03 14:44 | PM.EVENT ---
Event Note Event Note Event Note: Subjective: Patient here with acute pancreatitis due to alcoholism. Discussed sobriety with patient and she would like to try and quit on her own. She denies history of seizures in the past. She has had tremors and nightmares as her withdrawal symptoms. Labs reviewed with patient. She denies any nausea, vomiting, diarrhea, abdominal pain, fever, chills, chest pain, or shortness of breath. She is eating and drinking without difficulty. Exam: General: In no acute distress, well nourished Head: atraumatic, no encephalopathy Eyes: EOMI, PERRLA, sclera clear ENT: moist mucous membranes, nasal passages clear Neck: supple, no JVD, no adenopathy, trachea midline Cardiac: Normal S1 and S2. No murmur, gallops or friction rubs, peripheral pulses intact. Respiratory: Lungs clear to auscultation, no adventitious lung sounds, currently on room air Gastrointestinal: soft, rounded, non-tender, normoactive bowel sounds. : voiding without difficulty. Extremities: moves all extremities well, no edema, good ROM, strength 5/5 Skin: clean, dry, intact. No wounds or lesions. Neuro: Alert and oriented x4, cranial nerves intact, no neuro deficits. Slight tremors noted bilateral hands. Psych: normal mood, normal affect, interactive Plan: Will obtain labs in the morning and if Lipase is coming down we can likely discharge home. Patient is agreeable.
[2024-05-03 16:08] LABS: Glucose Point of Care 227 mg/dl (65-105)
[2024-05-04] VITALS: PULSE 66
[2024-05-04] MEDS: LACTATED RINGERS 1,000 ML 150 ML IV CONT ×2 (02:38→10:02)
[2024-05-04 04:00] VITALS: PULSE 124
[2024-05-04 06:00] VITALS: BP 118/76; PULSE 83; RESP 20; TEMP 36.3; O2SAT 99
[2024-05-04 06:43] LABS: Hematocrit 31.6 % (37.0-47.0); Hemoglobin 9.7 g/dL (12.0-15.0); Mean Corpuscular HGB Conc 30.7 g/dl (32-36); Mean Corpuscular Hemoglobin 27.6 pg (26-34); Mean Platelet Volume 11.7 fl (7.4-10.4); Platelet Count Result 197 k/mm3 (150-375); Red Blood Count 3.51 M/mm3 (4.2-5.4); Red Cell Distribution Width 19.3 % (11.5-14.5); White Blood Count 5.4 K/mm3 (4.5-10.0)
[2024-05-04 06:52] LABS: Lipase 801 U/L (23-300)
[2024-05-04 06:59] LABS: Alanine Aminotransferase 84 U/L (6-35); Albumin Level 3.6 g/dL (3.5-5.1); Alkaline Phosphatase 249 U/L (38-126); Anion Gap 16 mmol/L (4-12); Aspartate Amino Transferase 201 U/L (14-36); Bilirubin,Total 1.4 mg/dL (0.2-1.3); Calcium 8.5 mg/dL (8.4-10.2); Carbon Dioxide 21 mmol/L (22-30); Chloride 95 mmol/L (98-107); Estimated CRCL calculation 143 ml/min; Estimated Glomerular Filt Rate > 60; Glucose 195 mg/dL (65-110); Potassium 3.7 mmol/L (3.4-5.0); Sodium 132 mmol/L (137-145)
[2024-05-04 07:20] LABS: Blood Urea Nitrogen < 2 mg/dL (7-17)
[2024-05-04 07:34] LABS: Glucose Point of Care 189 mg/dl (65-105)
[2024-05-04 08:00] VITALS: PULSE 76
[2024-05-04 08:15] LABS: Glucose Point of Care 248 mg/dl (65-105)
[2024-05-04] MEDS: THIAMINE HCL 100 MG TABLET PO (09:58)
[2024-05-04] MEDS: PANTOPRAZOLE 40 MG TABLET PO (09:58)
[2024-05-04] MEDS: FOLIC ACID 1 MG TABLET PO (09:59)
[2024-05-04 10:18] LABS: Glucose Point of Care 272 mg/dl (65-105)
[2024-05-04] MEDS: INSULIN ASPART (*BKC) 100 UNITS/ML SUB-Q (10:18)
[2024-05-04 11:47] LABS: HAV RESULT Negative (Negative); Hepatitis B Core IgM Result Negative (Negative); Hepatitis B Surface Antigen Negative (Negative)
[2024-05-04 11:50] LABS: Glucose Point of Care 184 mg/dl (65-105)
[2024-05-04 11:58] LABS: Hepatitis C Virus Antibody Negative (Negative)
[2024-05-04 12:00] VITALS: PULSE 70
--- NOTE | 2024-05-04 13:22 | PM.DS ---
DS: Admitting Diagnosis Discharge Date 05/04/24 Admitting Diagnosis Acute alcoholic pancreatitis Alcoholic fatty liver disease GERD Nicotine abuse Hypomagnesemia Severe dehydration Alcoholic ketosis DS: Discharge Diagnosis Discharge Diagnosis (1) Acute alcoholic pancreatitis: Qualifiers: Acute pancreatitis complication: no infection or necrosis Qualified Code(s): K85.20 - Alcohol induced acute pancreatitis without necrosis or infection Code(s): K85.20 - Alcohol induced acute pancreatitis without necrosis or infection Status: Acute (2) Alcoholic fatty liver: Code(s): K70.0 - Alcoholic fatty liver Status: Acute (3) GERD with esophagitis: Qualifiers: Esophagitis bleeding: without hemorrhage Qualified Code(s): K21.00 - Gastro-esophageal reflux disease with esophagitis, without bleeding Code(s): K21.00 - Gastro-esophageal reflux disease with esophagitis, without bleeding Status: Acute (4) Nicotine abuse: Code(s): Z72.0 - Tobacco use Status: Acute (5) Hypomagnesemia: Code(s): E83.42 - Hypomagnesemia Status: Acute (6) Severe dehydration: Code(s): E86.0 - Dehydration Status: Acute (7) Alcoholic ketosis: Code(s): E88.89 - Other specified metabolic disorders Status: Acute DS: Summary Hospital Course Reason for hospitalization: Acute alcoholic pancreatitis Alcoholic fatty liver disease GERD Nicotine abuse Hypomagnesemia Severe dehydration Alcoholic ketosis Hospital Course: This is a 44-year-old female who presented to the hospital on 05/03/2024 with acute pancreatitis. She initially stated that her pain was 8/10. She does have long history of alcohol abuse and drinks 500-750 mL of Tequila daily and has done this for about 8 years workup in the hospital included CT of the abdomen and pelvis which shows diffuse hepatic steatosis, uterine fibroid. Initial labs shown a normal white blood cell count of 6.2, hemoglobin 11.5, sodium 134, chloride 89, blood sugar 192, magnesium 1.2, total bili 2.4, AST 406, ALT 114, alk-phos 311, lipase 863, beta hydroxybutyrate 2.44. UA was obtained which showed turbid appearance, urine specific gravity of 1.038, 2+ urine protein, trace glucose, 4+ ketone, 2+ urine blood, positive nitrate, 3+ urine bili, 1+ leukocyte, 51-100 urine RBC, 4+ bacteria. She was positive for cannabinoids on urine drug screen, ethanol level less than 10. Urine culture was negative. Blood cultures are showing no growth to date on preliminary read. She was given IV fluids, pain medication, and anti nausea medication while in the hospital. She states that her symptoms are improved and she started on a clear liquid diet and has been tolerating that well. She does wish to go home today and will continue to increase her diet back to her diabetic diet. She will need to follow up with her primary care physician in 1 week. She will also need to follow up with her boilermaker industrial boilers as soon as possible. Final diagnosis: Acute alcoholic pancreatitis, alcoholic fatty liver disease alcoholic ketosis Status at Discharge Cognitive/behavioral status at discharge: Alert oriented x3 Functional status at discharge: independent ambulation Overall status at discharge: patient is progressing back to baseline Time Spent with Patient Time attestation: Total time spent providing and/or coordinating discharge services: Time spent: Greater than 30 minutes Exam Narrative: General: In no acute distress, well nourished Cardiac: Normal S1 and S2. No murmur, gallops or friction rubs, peripheral pulses intact. Respiratory: Lungs clear to auscultation, no adventitious lung sounds Gastrointestinal: soft, non-distended, tenderness epigastric, normoactive bowel sounds. : voiding without difficulty. Neuro: Alert and oriented x4 DS: Data Data Completed and Pending Completed studies during hospitalization: Abdomen/pelvis CT Pending
== END 2024-05-04 15:04 | disposition home or self-care (01) ==
LOC: ANHED 18:43 → ANH3MEDSUR 19:41 → ANH2MED 20:41
PROVIDERS: Internal Medicine; Nurse Practitioner Acute Care; Physician Assistant; Student in an Organized Health Care Education/Training Program; Admitting Provider Internal Medicine; Emergency Provider Registered Nurse; PCP Family Medicine; Visit Provider Internal Medicine
DX: K85.20 Alcohol induced acute pancreatitis without necrosis or infection (principal); K70.0 Alcoholic fatty liver; K21.00 Gastro-esophageal reflux disease with esophagitis, without bleeding; E83.42 Hypomagnesemia; E86.0 Dehydration; E88.89 Other specified metabolic disorders; E10.319 Type 1 diabetes mellitus with unspecified diabetic retinopathy without macular edema; E10.43 Type 1 diabetes mellitus with diabetic autonomic (poly)neuropathy; K31.84 Gastroparesis; I10 Essential (primary) hypertension; E10.40 Type 1 diabetes mellitus with diabetic neuropathy, unspecified; F17.210 Nicotine dependence, cigarettes, uncomplicated; F12.90 Cannabis use, unspecified, uncomplicated; F10.20 Alcohol dependence, uncomplicated; Z79.4 Long term (current) use of insulin
CPT/HCPCS: 36415; 74177; 80048; 80053; 80074; 80076; 80307; 81001; 81025; 82010; 82607; 82746; 82803; 82948; 83605; 83690; 83735; 85025; 85027; 87040; 87086; 87088; 93005; 96360; 96361; 96365; 96374; 96375; 99285; A9270; G0378; J0696; J1815; J2060; J2405; J3411; J3475; J7030; J7120; Q9967

== ENCOUNTER 2024-10-25 07:05 | Outpatient (CLI) | payer OTHER, SELFPAY | END 2024-10-25 07:06 | disposition home or self-care (01) | LOC: CHSIMG 07:05 | PROVIDERS: PCP Family Medicine; Visit Provider Student in an Organized Health Care Education/Training Program | DX: Z12.31 Encounter for screening mammogram for malignant neoplasm of breast (principal) | CPT/HCPCS: 77063; 77067 ==

== ENCOUNTER 2024-10-29 13:42 | Outpatient (CLI) | payer OTHER, SELFPAY | END 2024-10-29 13:43 | disposition home or self-care (01) | LOC: GOSHIMG 13:43 | PROVIDERS: PCP Student in an Organized Health Care Education/Training Program; Visit Provider Student in an Organized Health Care Education/Training Program | DX: N83.292 Other ovarian cyst, left side (principal); D25.9 Leiomyoma of uterus, unspecified | CPT/HCPCS: 76830 ==

== ENCOUNTER 2024-11-19 10:33 | Outpatient (CLI) | payer OTHER, SELFPAY ==
[2024-11-19 11:20] LABS: Basophils Percent Auto 0.8 % (0.2-1.2); Eosinophils Absolute Auto 0.1 K/mm3 (0-0.3); Eosinophils Percent Auto 2.9 % (0-4.4); Hematocrit 35.3 % (37.0-47.0); Hemoglobin 10.4 g/dL (12.0-15.0); Immature Granulocyte Absolute 0.02 K/mm3 (0.00-0.031); Immature Granulocyte Percent A 0.4 % (0-0.5); Immature Platelet Fraction Pct 7.7 % (0.9-11.2); Lymphocytes Absolute Auto 1.68 K/mm3 (0.9-3.2); Lymphocytes Percent Auto 34.2 % (18.3-44.2); Mean Corpuscular HGB Conc 29.5 g/dl (32-36); Mean Corpuscular Hemoglobin 23.7 pg (26-34); Mean Corpuscular Volume 80.4 fl (80-100); Mean Platelet Volume 12.4 fl (7.4-10.4); Monocytes Absolute Auto 0.5 K/mm3 (0.1-0.6); Neutrophils Absolute Auto 2.5 K/mm3 (1.3-6.7); Neutrophils Percent Auto 51.7 % (45.5-73.1); Platelet Count Result 213 k/mm3 (150-375); Red Blood Count 4.39 M/mm3 (4.2-5.4); Red Cell Distribution Width 23.4 % (11.5-14.5); White Blood Count 4.9 K/mm3 (4.5-10.0)
[2024-11-19 11:55] LABS: Anisocytosis 1+; Hypochromasia 1+; Ovalocytes 1+; Platelet Estimate Adequate (Adequate); Schistocytes None Seen
== END 2024-11-19 10:34 | disposition home or self-care (01) ==
LOC: ANHLAB 10:35
PROVIDERS: PCP Student in an Organized Health Care Education/Training Program; Visit Provider Physician Assistant
DX: D64.9 Anemia, unspecified (principal); E10.9 Type 1 diabetes mellitus without complications; K70.0 Alcoholic fatty liver; R74.01 Elevation of levels of liver transaminase levels; F10.10 Alcohol abuse, uncomplicated
CPT/HCPCS: 36415; 85025; 85055

== ENCOUNTER 2025-01-02 09:14 | Outpatient (CLI) | payer OTHER, SELFPAY ==
[2025-01-02 09:32] LABS: Hematocrit 38.3 % (37.0-47.0); Hemoglobin 11.7 g/dL (12.0-15.0); Mean Corpuscular HGB Conc 30.5 g/dl (32-36); Mean Corpuscular Hemoglobin 26.4 pg (26-34); Mean Corpuscular Volume 86.5 fl (80-100); Mean Platelet Volume 11.5 fl (7.4-10.4); Platelet Count Result 233 k/mm3 (150-375); Red Blood Count 4.43 M/mm3 (4.2-5.4); Red Cell Distribution Width 17.8 % (11.5-14.5); White Blood Count 6.3 K/mm3 (4.5-10.0)
== END 2025-01-02 09:15 | disposition home or self-care (01) ==
LOC: ANHSURGERY 09:21
PROVIDERS: PCP Student in an Organized Health Care Education/Training Program; Visit Provider Obstetrics & Gynecology
DX: D25.9 Leiomyoma of uterus, unspecified (principal)
CPT/HCPCS: 36415; 85027; 86850; 86900; 86901

== ENCOUNTER 2025-01-10 01:48 | Day surgery (SDC) | payer OTHER, SELFPAY ==
--- NOTE | 2024-12-26 14:47 | SUR.PREOP ---
Report to the Outpatient Waiting Room, entrance under the green pavilion located off [facility], at time 0730 on date 01/10/25. Planned Procedure Time: 0930. Time changes happen often and if your time is changed the preop area will call you the afternoon before. - You and your visitor will be asked to self-screen and do not enter if you have any COVID symptoms. Please call surgeon if you need to reschedule. - A mask is optional within the hospital at this time. Patients may have clear liquids (water, carbonated beverages, clear teas, apple juice) until 3 hours prior to surgery with a maximum of 20 ounces. - No food from midnight until time of surgery and no smoking, or chewing tobacco (or any form of nicotine). No chewing gum, candy or mints. - Infants may have breast milk until 4 hours before surgery, formula 6 hours prior to surgery. - Children will be allowed to drink immediately following surgery. If applicable, please bring a bottle or sippy cup to assist with drinking. Juice, water, soda, and popsicles are readily available. For infants on formula, please bring formula the day of surgery. Pacifiers are allowed. Take only the following medications with a SIP of water on the morning of surgery: n/a DO NOT STOP ANY OF YOUR OTHER PRESCRIPTION MEDICATIONS PRIOR TO SURGERY EXCEPT THE FOLLOWING Hold all vitamins and supplements for 3 days per anesthesiologist. Medications to discontinue per physician ___hold all supplements and vitamins 3 days prior. Hold insulin morning of surgery___ Date to take last dose Please no make-up, nail yoruba, hairspray, perfume, deodorant, or body powder the day of surgery. No jewelry (including any body piercings) or valuables the day of surgery, leave them at home. Please take a shower or bath the night before, or the morning of, surgery with an antibacterial soap. Wear comfortable, loose fitting clothing. Children are encouraged to wear pajamas. - Jewelry must be removed prior to entering the operating room. Rings and piercings that are not removed may be cut off. - The hospital will not accept responsibility for valuables. - Please leave all valuables, including medications, at home the day of surgery. If you are going home after surgery, a licensed driver service technician must drive you home. - NO public transportation without another adult if you receive anesthesia. - We recommend that an adult stay with you for 24 hours following discharge. - We also recommend that you do not drive, make important decision, drink alcoholic beverages, or take any drugs that were not prescribed by your health care provider for at least 24 hours after your discharge time. For Pediatric surgeries, we recommend two adults accompany the child home. Follow any additional instructions given to you from your surgeon. Telephone instructions given to __patient__and asked if any additional questions and then verbalized understanding. Patient advised to call surgeon office or pre surgery nurse liaison [phone] if any additional questions.
[2024-12-26 14:49] VITALS: BMI 27.3
[2025-01-10] VITALS (10 sets, daily range): BP systolic 90–119; BP diastolic 52–78; PULSE 56–74; RESP 14–20; TEMP 36.1–36.9; O2SAT 96–100
[2025-01-10 06:46] LABS: Hematocrit 41.1 % (37.0-47.0); Hemoglobin 12.8 g/dL (12.0-15.0); Immature Platelet Fraction Pct 8.9 % (0.9-11.2); Mean Corpuscular HGB Conc 31.1 g/dl (32-36); Mean Corpuscular Hemoglobin 26.5 pg (26-34); Mean Corpuscular Volume 85.1 fl (80-100); Mean Platelet Volume 11.8 fl (7.4-10.4); Platelet Count Result 209 k/mm3 (150-375); Red Blood Count 4.83 M/mm3 (4.2-5.4); Red Cell Distribution Width 16.9 % (11.5-14.5)
[2025-01-10 06:51] LABS: Glucose Point of Care 107 mg/dl (65-105)
[2025-01-10] MEDS: ACETAMINOPHEN 500 MG TABLET 1000 MG PO ×3 (07:00→21:00)
[2025-01-10] MEDS: KETOROLAC 15 MG/ML VIAL (*BKC) IV PUSH (07:00)
[2025-01-10] MEDS: LACTATED RINGERS 1,000 ML 30 ML IV CONT ×3 (07:00→10:24)
--- NOTE | 2025-01-10 07:17 | WPDANESEPPF ---
Anes - Initial Pre Proc Eval Procedure: Operation Date: 01/10/25 07:30 Proposed Procedures p Robotic Assisted Total Laparoscopic Hysterectomy with Bilateral Salpingectomy - Roshan Wu MD Date/Time: 01/10/25 07:17 Surgeon: Roshan Wu MD Pre Op Diagnosis: uterine fibroid Patient Data Age: 44 Gender: F Height: 1.7 m Weight: 79.38 kg Allergies Allergy/AdvReac Type Severity Reaction Status Date / Time lactase (From Dairy Aid) Allergy Nausea and Verified 12/31/24 14:57 Vomiting Home Medications Medication Instructions Recorded Confirmed Type pen needle, diabetic 31 gauge x #400 ea 07/16/20 10/22/24 Rx 3/16 (BD Ultra-Fine Mini Pen Needle) womans multiple vitamin 1 cap PO DAILY 01/10/23 12/26/24 History urine glucose-ketones test #50 ea 06/07/24 10/22/24 Rx biotin 10 mg tablet 10 mg PO DAILY 10/15/24 12/26/24 History blood-glucose sensor (Dexcom G7 #9 ea 10/15/24 10/22/24 Rx Sensor device) calcium carbonate 500 mg PO DAILY 10/15/24 12/26/24 History cholecalciferol (vitamin D3) 25 25 mcg PO DAILY 10/15/24 12/26/24 History mcg (1,000 unit) tablet glucagon 1 mg/0.2 mL subcutaneous 1 mg (0.2 mL) subcut ONCE PRN 10/15/24 12/26/24 Rx auto-injector (Gvoke HypoPen hypoglycemia #0.4 mL 2-Pack) insulin aspart 60 unit subcut DAILY #45 mL 10/15/24 12/26/24 Rx (niacinamide)(U-100) 100 unit/mL(3 mL) subcutaneous pen (Fiasp FlexTouch U-100 Insulin) insulin glargine 100 unit/mL (3 20 unit (0.2 mL) subcut QAM #30 mL 10/15/24 12/26/24 Rx mL) subcutaneous pen (Lantus Solostar U-100 Insulin) milk thistle 150 mg capsule 150 mg PO BID 10/15/24 12/26/24 History multivitamin 1 tablet PO DAILY 10/15/24 12/26/24 History rosuvastatin 5 mg tablet 5 mg PO DAILY #90 tabs 10/15/24 12/26/24 Rx turmeric 400 mg capsule 400 mg PO DAILY 10/15/24 12/26/24 History zinc gluconate 30 mg tablet 30 mg PO DAILY 10/15/24 12/26/24 History ferrous sulfate 325 mg (65 mg 325 mg PO DAILY 12/26/24 12/26/24 History iron) tablet (Iron (ferrous sulfate)) vitamin B complex 1 tablet PO DAILY 12/26/24 12/26/24 History Laboratory Tests 01/10/25 01/10/25 06:38 06:47 WBC 7.0 K/mm3 (4.5-10.0) RBC 4.83 M/mm3 (4.2-5.4) Hgb 12.8 g/dL (12.0-15.0) Hct 41.1 % (37.0-47.0) MCV 85.1 fl (80-100) MCH 26.5 pg (26-34) MCHC 31.1 L g/dl (32-36) RDW 16.9 H % (11.5-14.5) Plt Count 209 k/mm3 (150-375) MPV 11.8 H fl (7.4-10.4) % Immature Plt Fraction 8.9 % (0.9-11.2) POC Capillary Glucose 107 H mg/dl (65-105) Patient hx anesthesia problems: none Family hx anesthesia problems: none Results Review: All pre-operative results and documents have been reviewed as part of the pre-operative evaluation. [facility] Past Medical History Medical History Abnormal uterine bleeding Diabetic ketoacidosis Ulcerative esophagitis Diabetic neuropathy Type 1 diabetes mellitus Diabetic gastroparesis associated with type 1 diabetes mellitus Obesity (BMI 30.0-34.9) Tobacco dependence Elevated liver enzymes Arthritis Type 1 diabetes mellitus with retinopathy Benign essential HTN Surgical History Surgical History History of esophagogastroduodenoscopy (EGD) (12/2020) Family History Family History Father Hypertension Patient's father is in good health Hyperlipidemia Mother Patient's mother is in good health Pacemaker Type 1 diabetes mellitus Sibling Patient's sister is in good health Grandparent Family history of type 2 diabetes mellitus Other Family history of allergic disorder Family history of malignant neoplasm Social History Social History (Reviewed 12/31/24 @ 14:57 by Kerri Navarro COUNTS INCLUDE 234 BEDS AT THE [facility]) Social History: She has been since 2012. She has smoked since she was in her early 20s. She has smoked as much as 1 pack of cigarettes per day. He is currently cut down to about 5 cigarettes a day. Approximately 2 to 3 times a month she will consume marijuana edibles. She has drank heavily every day since approximately 2016. 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 She drinks a 5th of hard liquor day. Interestingly enough her current job as a assessment clinician does not allow her to drink during her shift. She has 3 cats at home. She does not have any children. Code status: Full code Surrogate decision maker: Smoking packs per day: 0.5 Smoking cigarettes per day: 10.0 Years smoked: 23 Smoking pack-years: 11.50 Smoking status: Current every day smoker Tobacco type: cigarettes Second hand tobacco smoke exposure: Yes Alcohol intake: former Drinks per week: 50 Alcohol use details: Pt drinks less than half a liter a day of alcohol. Substance use: current Substance use type: marijuana Other substance usage details: edibles 10mg, 2-3 times a week. 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 Gender identity (if verbalized by the patient): Female Sexual Orientation (if Verbalized by the Patient): Straight or Heterosexual Spiritual care concerns: No Anes - Eval Final PreProcedure Day of Procedure 01/10/25 07:17 Patient weight: normal Heart: regular rate and rhythm Lungs: clear to auscultation Airway: Mallampati scale class II Neurological: alert and oriented Last oral intake: >/= 8 hours ASA classification: III Emergent: no Anesthetic plan: proceed Anesthesia type and monitoring: general ETT and standard monitoring Results Review: All pre-operative results and documents have been reviewed as part of the pre-operative evaluation. Informed Consent: The patient's anesthetic plan and its attendant risks and benefits were discussed with the patient/family/POA. Questions were solicited and answers provided to the satisfaction of the patient/family/POA.
--- NOTE | 2025-01-10 07:23 | WPDHPUPDATE1 ---
History and Physical Update Update Date/Time: 01/10/25 07:23 History and Physical has been reviewed, including an updated exam of the patient. There are NO changes in the patient's condition. Risks, benefits, and alternatives have been discussed and questions answered. Patient agrees to proceed with procedure.
[2025-01-10] MEDS: ceFAZolin 2 GM/D5W 50 ML 2 GM/50 ML BAG IVPB (07:30)
[2025-01-10 09:52] LABS: Glucose Point of Care 183 mg/dl (65-105)
[2025-01-10] MEDS: fentaNYL CITRATE INJ (*CRX) 100 MCG/2 ML VIAL 25 MCG IV PUSH ×8 (10:06→10:30)
--- NOTE | 2025-01-10 10:10 | W.PM.PROC2 ---
Procedure Note - Detailed Date of Procedure 01/10/25 Pre-op Diagnosis 1. Symptomatic uterine fibroid Post-op Diagnosis Same (2. Endometriosis) Procedure Performed 1. Robotic assisted total laparoscopic hysterectomy with bilateral salpingectomy Surgeon Roshan Wu MD Anesthesia General Findings Enlarged fibroid uterus (351 gram) with normal tubes and ovaries. Posterior cul-de-sac endometriosis also noted. Description of Procedure Patient prepped draped usual manner for this procedure. Cervical instruments were placed for uterine mobility throughout the case. Attention was then placed the abdomen all the trocars were placed under direct visualization, attached to the Jhon system, and instruments were placed again under direct visualization. At this point the surgeon moved to the console. Cauterizing the mesial salpinx both tubes were removed without difficulty. Utero-ovarian ligaments were cauterized and cut to allow the ovaries to drop out of the operative field. Round ligaments were cauterized and cut bilaterally and the posterior and anterior leaf the broad ligament was incised to form the bladder flap as well as skeletonize the uterine vessels. Uterine vessels were cauterized and cut bilaterally and at this point the posterior colpotomy incision was made and carried circumferentially to remove the cervix from the vagina. Attempt was then made to deliver the specimen vaginally unable to be done due to size. Therefore the fibroid was enucleated and the uterus was delivered without difficulty. Tenaculum was then placed in the vagina and into the lower pelvis and the fibroid was removed without difficulty. Irrigation was undertaken and there was no bleeding. The vaginal cuff was then closed using V lock suture from the right angle to the midline and the same from the left angle to the midline with good approximation hemostasis noted. Again irrigation was undertaken with no significant bleeding. [place] arm was placed empirically over all the raw sites at this point the procedure was considered terminated. Gas was allowed to escape trocars removed and incisions approximated using 4-0 Monocryl. Patient was sent to recovery room in stable condition. Estimated Blood Loss 100 Drains No Packing No Pathology Yes Complications No immediate complications Condition Stable Disposition PACU [facility] Billing Surgery - Charge Forward: Surgery Billing
--- NOTE | 2025-01-10 10:55 | ADMGEN ---
This patient, Neva Chandler, was admitted to OB 2nd Floor Room 289-00. Patient/family oriented to hospital policies and general routines including ID bracelet, bed and alarms, visiting hours, pain management, procedures, bathroom and other care routines, personal items, smoking policy, room service/diet, and visiting hours. Information on how to activate the Rapid Response Team has been discussed. Patient/Family are encouraged to report perceived risks to care and to ask questions if they do not understand what they are told or what they should do.
[2025-01-10] MEDS: oxyCODONE HCL (*CRX) 5 MG TAB IR PO (11:28)
[2025-01-10] MEDS: SIMETHICONE 80 MG TAB.CHEW PO ×2 (12:36→16:41)
[2025-01-10] MEDS: ROSUVASTATIN 5 MG TABLET PO (12:37)
[2025-01-10] MEDS: INSULIN HUMAN REGULAR (*BKC) 100 UNITS/ML SUB-Q ×2 (12:39→21:12)
[2025-01-10 12:53] LABS: Glucose Point of Care 275 mg/dl (65-105)
[2025-01-10] MEDS: ONDANSETRON INJ 4 MG/2 ML VIAL IV PUSH (12:54)
[2025-01-10] MEDS: DEXTROSE 5%/0.45% SOD CHL 1,000 ML 125 ML IV CONT (13:30)
[2025-01-10 15:15] LABS: Glucose Point of Care 265 mg/dl (65-105)
[2025-01-10] MEDS: KETOROLAC 30 MG/ML VIAL (*BKC) IV PUSH ×2 (15:16→21:00)
[2025-01-10] MEDS: INSULIN ASPART (*BKC) 100 UNITS/ML SUB-Q ×2 (15:18→18:01)
[2025-01-10] MEDS: DOCUSATE SODIUM 100 MG CAPSULE PO (16:41)
[2025-01-10] MEDS: metroNIDAZOLE 500 MG TABLET PO (16:41)
[2025-01-10 18:09] LABS: Glucose Point of Care 255 mg/dl (65-105)
[2025-01-10 21:08] LABS: Glucose Point of Care 272 mg/dl (65-105)
[2025-01-11 00:49] LABS: Glucose Point of Care 247 mg/dl (65-105)
[2025-01-11] MEDS: INSULIN HUMAN REGULAR (*BKC) 100 UNITS/ML SUB-Q ×2 (00:51→04:59)
[2025-01-11 03:15] VITALS: BP 92/62; PULSE 74; RESP 16; TEMP 36.5; O2SAT 99
[2025-01-11] MEDS: ACETAMINOPHEN 500 MG TABLET 1000 MG PO ×2 (03:15→09:04)
[2025-01-11] MEDS: KETOROLAC 30 MG/ML VIAL (*BKC) IV PUSH (03:15)
[2025-01-11 04:25] LABS: Basophils Absolute Auto 0.1 K/mm3 (0.0-0.1); Basophils Percent Auto 0.4 % (0.2-1.2); Eosinophils Percent Auto 0.2 % (0-4.4); Hematocrit 33.3 % (37.0-47.0); Hemoglobin 10.6 g/dL (12.0-15.0); Immature Granulocyte Absolute 0.04 K/mm3 (0.00-0.031); Immature Granulocyte Percent A 0.3 % (0-0.5); Lymphocytes Absolute Auto 1.84 K/mm3 (0.9-3.2); Lymphocytes Percent Auto 13.7 % (18.3-44.2); Mean Corpuscular HGB Conc 31.8 g/dl (32-36); Mean Corpuscular Hemoglobin 27.1 pg (26-34); Mean Corpuscular Volume 85.2 fl (80-100); Mean Platelet Volume 12.3 fl (7.4-10.4); Monocytes Absolute Auto 0.9 K/mm3 (0.1-0.6); Monocytes Percent Auto 6.4 % (2.6-8.5); Neutrophils Absolute Auto 10.6 K/mm3 (1.3-6.7); Platelet Count Result 192 k/mm3 (150-375); Red Blood Count 3.91 M/mm3 (4.2-5.4); Red Cell Distribution Width 16.6 % (11.5-14.5); White Blood Count 13.4 K/mm3 (4.5-10.0)
[2025-01-11 04:27] LABS: Anion Gap 7 mmol/L (4-12); Blood Urea Nitrogen 8 mg/dL (7-17); Calcium 8.3 mg/dL (8.4-10.2); Carbon Dioxide 22 mmol/L (22-30); Chloride 102 mmol/L (98-107); Estimated CRCL calculation 120 ml/min; Estimated Glomerular Filt Rate > 60; Glucose 247 mg/dL (65-110); Potassium 4.1 mmol/L (3.4-5.0); Sodium 131 mmol/L (137-145)
[2025-01-11 04:58] LABS: Glucose Point of Care 303 mg/dl (65-105)
[2025-01-11 07:25] VITALS: BP 91/49; PULSE 55; RESP 16; TEMP 37.1; O2SAT 98
--- NOTE | 2025-01-11 07:53 | P.PNAN_ITS ---
Anes - Prog Note Post-Op Date/Time: 01/11/25 07:53 Cardiovascular status: normal Respiratory status: normal Airway patency: baseline Mental status: baseline Post-Op hydration status: normal Vital Signs: Last Vital Signs Temp 36.5 C 01/11/25 03:15 Pulse 74 01/11/25 03:15 Resp 16 01/11/25 03:15 BP 92/62 L 01/11/25 03:15 Pulse Ox 99 01/11/25 03:15 O2 Del Method Room Air 01/10/25 15:05 O2 Flow Rate 6 01/10/25 10:15 Pain Score (VAS): 2 I/O: Intake & Output 01/10/25 01/10/25 01/11/25 15:59 23:59 07:59 Intake Total 500 2100 240 Output Total 100 700 400 Balance 400 1400 -160 Laboratory Tests 01/11/25 03:19 01/11/25 03:19 01/10/25 01/10/25 01/10/25 09:49 12:38 15:11 WBC RBC Hgb Hct MCV MCH MCHC RDW Plt Count MPV Immature Gran % (Auto) Neut % (Auto) Lymph % (Auto) [place] % (Auto) Eos % (Auto) Baso % (Auto) Lymph # (Auto) [place] # (Auto) Eos # (Auto) Baso # (Auto) Abs Immat Gran (auto) Absolute Neuts (auto) Absolute Nucleated RBC Nucleated RBC % Sodium Potassium Chloride Carbon Dioxide Anion Gap BUN Creatinine Estim Creat Clear Calc Estimated GFR Glucose POC Capillary Glucose 183 H 275 H 265 H Calcium 01/10/25 01/10/25 01/11/25 18:00 21:04 00:46 WBC RBC Hgb Hct MCV MCH MCHC RDW Plt Count MPV Immature Gran % (Auto) Neut % (Auto) Lymph % (Auto) [place] % (Auto) Eos % (Auto) Baso % (Auto) Lymph # (Auto) [place] # (Auto) Eos # (Auto) Baso # (Auto) Abs Immat Gran (auto) Absolute Neuts (auto) Absolute Nucleated RBC Nucleated RBC % Sodium Potassium Chloride Carbon Dioxide Anion Gap BUN Creatinine Estim Creat Clear Calc Estimated GFR Glucose POC Capillary Glucose 255 H 272 H 247 H Calcium 01/11/25 01/11/25 03:19 04:53 WBC 13.4 H RBC 3.91 L Hgb 10.6 L Hct 33.3 L MCV 85.2 MCH 27.1 MCHC 31.8 L RDW 16.6 H Plt Count 192 MPV 12.3 H Immature Gran % (Auto) 0.3 Neut % (Auto) 79.0 H Lymph % (Auto) 13.7 L [place] % (Auto) 6.4 Eos % (Auto) 0.2 Baso % (Auto) 0.4 Lymph # (Auto) 1.84 [place] # (Auto) 0.9 H Eos # (Auto) 0.0 Baso # (Auto) 0.1 Abs Immat Gran (auto) 0.04 H Absolute Neuts (auto) 10.6 H Absolute Nucleated RBC 0.000 Nucleated RBC % 0.0 Sodium 131 L Potassium 4.1 Chloride 102 Carbon Dioxide 22 Anion Gap 7 BUN 8 D Creatinine 0.49 L Estim Creat Clear Calc 120 Estimated GFR > 60 Glucose 247 H POC Capillary Glucose 303 H Calcium 8.3 L Post-procedural complaints: none Patient Feedback: Patient satisfied with anesthetic care.
[2025-01-11 08:48] LABS: Glucose Point of Care 233 mg/dl (65-105)
[2025-01-11] MEDS: INSULIN ASPART (*BKC) 100 UNITS/ML 7 UNITS SUB-Q (09:01)
[2025-01-11] MEDS: CALCIUM CARBONATE (TUMS) 500 MG (200 MG ELEMENTAL) PO (09:03)
[2025-01-11] MEDS: IBUPROFEN 600 MG TABLET PO (09:04)
[2025-01-11] MEDS: metroNIDAZOLE 500 MG TABLET PO (09:04)
[2025-01-11] MEDS: DOCUSATE SODIUM 100 MG CAPSULE PO (09:04)
[2025-01-11] MEDS: SIMETHICONE 80 MG TAB.CHEW PO (09:04)
[2025-01-11] MEDS: VITAMIN B COMPLEX CAPSULE 1 CAP PO (09:05)
[2025-01-11] MEDS: FERROUS SULFATE 325 MG TABLET DR PO (09:05)
[2025-01-11] MEDS: INSULIN GLARGINE (*BKC) 100 UNITS/ML 20 UNITS SUB-Q (09:06)
[2025-01-11] MEDS: CHOLECALCIFEROL 1,000 UNITS TABLET 1000 UNITS PO (09:06)
== END 2025-01-11 10:35 | disposition home or self-care (01) ==
LOC: ANHSURGERY 05:56 → ANHOB2 15:01
PROVIDERS: PCP Student in an Organized Health Care Education/Training Program; Visit Provider Obstetrics & Gynecology
PROC: (CPT 58571; principal; 2025-01-10 07:30)
DX: D25.1 Intramural leiomyoma of uterus (principal); N80.329 Endometriosis of the posterior cul-de-sac, unspecified depth; G89.18 Other acute postprocedural pain; I10 Essential (primary) hypertension; E10.319 Type 1 diabetes mellitus with unspecified diabetic retinopathy without macular edema; E10.10 Type 1 diabetes mellitus with ketoacidosis without coma; E10.43 Type 1 diabetes mellitus with diabetic autonomic (poly)neuropathy; K31.84 Gastroparesis; M19.90 Unspecified osteoarthritis, unspecified site; F17.210 Nicotine dependence, cigarettes, uncomplicated; F12.90 Cannabis use, unspecified, uncomplicated; Z79.4 Long term (current) use of insulin; Z87.19 Personal history of other diseases of the digestive system; Z80.9 Family history of malignant neoplasm, unspecified
CPT/HCPCS: 58571; S2900; 36415; 80048; 82948; 85025; 85027; 85055; 88307; 99199; A9270; J0690; J1100; J1171; J1815; J1885; J2003; J2250; J2405; J2704; J3010; J7030; J7120